=== PATIENT | female | born 1970 | race Caucasian/White ===

== ENCOUNTER 2017-03-13 21:41 | Inpatient (IN) | payer OTHER ==
[2017-03-13 21:59] VITALS: BMI 18.6
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
[2017-03-13] MEDS ORDERED: ACETAMINOPHEN 325 MG TABLET (FP) PO PRN (22:50)
[2017-03-13] MEDS ORDERED: guaiFENesin/D-METHORPHAN HB 10 ML UNIT-DOSE CUPS PO PRN (22:50)
[2017-03-13] MEDS ORDERED: diphenhydrAMINE HCL 50 MG CAPSULE PO PRN (22:50)
[2017-03-13] MEDS ORDERED: diazePAM 5 MG TABLET PO ONE (22:50)
[2017-03-13] MEDS ORDERED: MAGNESIUM HYDROX 2400MG/30ML ORAL SUSPENSION 30 ML CUP PO PRN (22:50)
[2017-03-13] MEDS ORDERED: LOPERAMIDE HCL 2 MG CAPSULE PO PRN (22:50)
[2017-03-13] MEDS ORDERED: IBUPROFEN 400 MG TABLET (FP) PO PRN (22:50)
[2017-03-13] MEDS ORDERED: MAGNESIUM CITRATE 300 ML BOTTLE PO PRN (22:50)
[2017-03-13] MEDS ORDERED: MENTHOL/PHENOL 1 EACH UD MM PRN (22:50)
[2017-03-13] MEDS ORDERED: MAG HYDROX/AL HYDROX/SIMETH 30 ML UNIT-DOSE CUP PO PRN (22:50)
[2017-03-13] MEDS ORDERED: P-EPHED 60MG/TRIPROLIDI 2.5MG TABLET PO PRN (22:50)
[2017-03-14] MEDS: NICOTINE POLACRILEX 2 MG GUM BUC PRN ×5 (01:34→22:41)
[2017-03-14] MEDS: diazePAM 5 MG TABLET PO PRN ×3 (04:46→18:26)
[2017-03-14] MEDS: diazePAM 5 MG TABLET PO SCH ×3 (07:26→22:38)
[2017-03-14] MEDS ORDERED: METHADONE HCL 10 MG TABLET PO ONE (08:39)
[2017-03-14] MEDS ORDERED: METHADONE 40 MG, METHADONE 10 MG, METHADONE 5 MG PO ONE (09:05)
[2017-03-14] MEDS ORDERED: METHADONE HCL 10 MG TABLET ONE (09:29)
[2017-03-14] MEDS ORDERED: METHADONE HCL 5 MG TABLET ONE (09:29)
[2017-03-14] MEDS ORDERED: METHADONE HCL 40 MG DISPERSABLE TABLET ONE (09:29)
--- NOTE | 2017-03-14 09:40 | PN ---
[facility] Progress Note Note: pt was at [facility] yesterday 03/13/17 for an ER visit and received methadone 40mg there. Pt belongs to [facility] and was last medicated there on 03/06/17 however she was being built up and will receive her regular dose of 55mg today then during her stay and pt will go back to her program after detox.
[2017-03-14 10:02] LABS: MCH 31.4 pg (25.7-33.7); MCHC 33.2 g/dl (32.0-36.0); MEAN CELL VOLUME 94.7 fl (80-96); MEAN PLT VOLUME 8.9 fl (7.5-11.1); PLATELET COUNT 230 K/MM3 (134-434); RDW 14.7 % (11.6-15.6); WHITE BLOOD COUNT 6.7 K/mm3 (4.0-10.0)
--- NOTE | 2017-03-14 10:29 | PN ---
S CIWA - CIWA Score Nausea/Vomitin-No Nausea/No Vomiting Muscle Tremors: 4-Moderate,w/Arms Extend Anxiety: 3 Agitation: 4-Moderately Restless Paroxysmal Sweats: 3 Orientation: 0-Oriented Tacttile Disturbances: 0-None Auditory Disturbances: 0-None Visual Disturbances: 0-None Headache: 1-Very Mild CIWA-Ar Total Score: 15 BHS Progress Note (SOAP) Subjective: irritable I need my methadone sweats interrupted sleep agitation body aches Objective: 03/14/17 10:25 Vital Signs Temperature 97.9 F 03/14/17 06:38 Pulse Rate 82 03/14/17 06:38 Respiratory Rate 18 03/14/17 06:38 Blood Pressure 106/72 03/14/17 06:38 O2 Sat by Pulse Oximetry (%) Laboratory Tests 03/14/17 07:00 WBC 6.7 RBC 4.11 Hgb 12.9 Hct 39.0 MCV 94.7 MCH 31.4 MCHC 33.2 RDW 14.7 Plt Count 230 MPV 8.9 aaox3 labs pending ambulating no acute distress Assessment: 03/14/17 10:29 withdrawal sx Plan: continue detox increase fluids methadone ordered labs pending
[2017-03-14 10:42] LABS: ALBUMIN 3.3 g/dl (3.4-5.0); ALK PHOS 56 U/L (45-117); ANION GAP 9 (8-16); BILIRUBIN,TOTAL 0.3 mg/dL (0.2-1.0); CALCIUM 8.5 mg/dL (8.5-10.1); CO2 28 mmol/L (21-32); CREATININE 0.6 mg/dL (0.55-1.02); GLUCOSE,RANDOM 81 mg/dL (74-106); SGOT/AST 15 U/L (15-37); SGPT/ALT 23 U/L (12-78); TOT PROT 6.9 g/dl (6.4-8.2)
[2017-03-14] MEDS: PRENATAL VITAMINS W/ FOLIC ACID TABLET (FP) PO SCH (10:44)
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
--- NOTE | 2017-03-14 20:27 | EKG ---
Test Reason : Blood Pressure : / mmHG Vent. Rate : 087 BPM Atrial Rate : 087 BPM P-R Int : 170 ms QRS Dur : 084 ms QT Int : 376 ms P-R-T Axes : 032 078 064 degrees QTc Int : 452 ms NORMAL SINUS RHYTHM RSR' IN V1-V2 NO PREVIOUS ECGS AVAILABLE Confirmed by ISAIAS WYATT MD ([id number]) on 03/14/2017 8:27:06 PM Referred By: Confirmed By:ISAIAS WYATT MD
[2017-03-14] MEDS: QUEtiapine FUMARATE 50 MG TABLET PO SCH (22:38)
[2017-03-14] MEDS: THIAMINE HCL 100 MG TABLET (FP) PO SCH (22:38)
[2017-03-15] MEDS: diazePAM 5 MG TABLET PO PRN ×4 (01:46→18:07)
[2017-03-15] MEDS: NICOTINE POLACRILEX 2 MG GUM BUC PRN ×3 (01:48→10:53)
[2017-03-15] MEDS: METHADONE HCL 40 MG DISPERSABLE TABLET PO SCH (05:54)
[2017-03-15] MEDS ORDERED: METHADONE 40 MG, METHADONE 10 MG, METHADONE 5 MG PO SCH ×2 (06:00)
[2017-03-15] MEDS ORDERED: METHADONE HCL 40 MG DISPERSABLE TABLET PO SCH (06:00)
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
--- NOTE | 2017-03-15 09:50 | PN ---
S CIWA - CIWA Score Nausea/Vomitin-No Nausea/No Vomiting Muscle Tremors: 4-Moderate,w/Arms Extend Anxiety: 3 Agitation: 3 Paroxysmal Sweats: 3 Orientation: 0-Oriented Tacttile Disturbances: 0-None Auditory Disturbances: 0-None Visual Disturbances: 0-None Headache: 0-None Present CIWA-Ar Total Score: 13 BHS Progress Note (SOAP) Subjective: agitation sweats anxiety i need my gayle removed from my head Objective: 03/15/17 10:01 Vital Signs Temperature 97.7 F 03/15/17 06:47 Pulse Rate 85 03/15/17 06:47 Respiratory Rate 18 03/15/17 06:47 Blood Pressure 99/60 03/15/17 06:47 O2 Sat by Pulse Oximetry (%) Laboratory Tests 03/14/17 03/14/17 03/14/17 07:00 07:00 07:00 WBC 6.7 RBC 4.11 Hgb 12.9 Hct 39.0 MCV 94.7 MCH 31.4 MCHC 33.2 RDW 14.7 Plt Count 230 MPV 8.9 Sodium 140 Potassium 4.2 Chloride 103 Carbon Dioxide 28 Anion Gap 9 BUN 19 H Creatinine 0.6 Creat Clearance w eGFR > 60 Random Glucose 81 Calcium 8.5 Total Bilirubin 0.3 AST 15 ALT 23 Alkaline Phosphatase 56 Total Protein 6.9 Albumin 3.3 L RPR Titer Nonreactive labs pending aaox3 ambulating no acute distress methadone was decreased to 40mg until her detox is complete, pt states she is feeling ok. discussion made with pt that she will be observed and will increase her methadone slowly, pt in agreement. Assessment: 03/15/17 10:11 withdrawal sx Plan: continue detox increase fluids
[2017-03-15] MEDS: PRENATAL VITAMINS W/ FOLIC ACID TABLET (FP) PO SCH (10:49)
[2017-03-15] MEDS: PARoxetine HCL 20 MG TABLET (FP) PO SCH (10:49)
[2017-03-15] MEDS: CYCLOBENZAPRINE HCL 10 MG TABLET (FP) PO PRN ×2 (10:50→22:22)
[2017-03-15] MEDS: IBUPROFEN 600 MG TABLET (FP) PO PRN (10:51)
[2017-03-15] MEDS: diazePAM 5 MG TABLET PO SCH ×2 (10:52→22:21)
[2017-03-15] MEDS: QUEtiapine FUMARATE 50 MG TABLET PO SCH (22:20)
[2017-03-15] MEDS: THIAMINE HCL 100 MG TABLET (FP) PO SCH (22:20)
[2017-03-16] MEDS: diazePAM 5 MG TABLET PO PRN ×3 (01:28→17:29)
[2017-03-16] MEDS: NICOTINE POLACRILEX 2 MG GUM BUC PRN ×7 (01:29→23:02)
[2017-03-16] MEDS: IBUPROFEN 600 MG TABLET (FP) PO PRN ×2 (04:27→19:14)
[2017-03-16] MEDS: METHADONE HCL 40 MG DISPERSABLE TABLET PO SCH (05:40)
[2017-03-16] MEDS: CYCLOBENZAPRINE HCL 10 MG TABLET (FP) PO PRN ×3 (05:41→23:00)
[2017-03-16] MEDS ORDERED: METHADONE HCL 10 MG TABLET PO ONE (08:41)
[2017-03-16] MEDS: PARoxetine HCL 20 MG TABLET (FP) PO SCH (10:39)
[2017-03-16] MEDS: PRENATAL VITAMINS W/ FOLIC ACID TABLET (FP) PO SCH (10:39)
[2017-03-16] MEDS: diazePAM 5 MG TABLET PO SCH ×3 (10:40→23:01)
--- NOTE | 2017-03-16 11:17 | PN ---
[facility] Progress Note (SOAP) Subjective: feeling much better i would like my methadone increased anxiety sweats Objective: 03/16/17 11:17 Vital Signs Temperature 96.3 F L 03/16/17 10:12 Pulse Rate 81 03/16/17 10:12 Respiratory Rate 18 03/16/17 10:12 Blood Pressure 102/64 03/16/17 10:12 O2 Sat by Pulse Oximetry (%) aaox3 ambulating no acute distress Assessment: 03/16/17 11:17 withdrawal sx Plan: continue detox increase fluids methadone maintains will be increased to 55mg in the am d/c tomorrow and pt is to go to her mmtp to re-instate
[2017-03-16 14:27] LABS: URINE APPEARANCE CLEAR; URINE BILIRUBIN NEGATIVE (NEGATIVE); URINE BLOOD NEGATIVE (NEGATIVE); URINE COLOR LT. RED; URINE GLUCOSE (UA) NEGATIVE (NEGATIVE); URINE KETONE TRACE (NEGATIVE); URINE NITRITE NEGATIVE (NEGATIVE); URINE PROTEIN NEGATIVE (NEGATIVE); URINE UROBILINOGEN 0.2 mg/dL (0.2-1.0)
[2017-03-16 18:42] LABS: URINE LEUK ESTERASE 3+ (NEGATIVE)
[2017-03-16 20:21] LABS: URINE RBC 0-2 /hpf (0-3)
[2017-03-16 20:22] LABS: URINE BACTERIA MODERATE /hpf (NEGATIVE)
[2017-03-16] MEDS: THIAMINE HCL 100 MG TABLET (FP) PO SCH (22:59)
[2017-03-16] MEDS: QUEtiapine FUMARATE 50 MG TABLET PO SCH (22:59)
[2017-03-17] MEDS: NICOTINE POLACRILEX 2 MG GUM BUC PRN ×3 (02:25→09:49)
[2017-03-17] MEDS ORDERED: METHADONE HCL 40 MG DISPERSABLE TABLET ONE (04:59)
[2017-03-17] MEDS ORDERED: METHADONE HCL 10 MG TABLET ONE (04:59)
[2017-03-17] MEDS ORDERED: METHADONE HCL 5 MG TABLET ONE (05:00)
[2017-03-17] MEDS: CYCLOBENZAPRINE HCL 10 MG TABLET (FP) PO PRN (05:55)
[2017-03-17] MEDS ORDERED: METHADONE HCL 40 MG DISPERSABLE TABLET PO SCH (06:00)
[2017-03-17] MEDS ORDERED: METHADONE 40 MG, METHADONE 10 MG, METHADONE 5 MG PO SCH (06:00)
[2017-03-17 06:45] VITALS: BP 104/62; PULSE 90; TEMP 97.9
--- NOTE | 2017-03-17 08:36 | DS ---
[facility] Detox Discharge Summary Admission Date: 03/13/17 Discharge Date: 03/17/17 - History Present History: Alcohol Dependence, Sedative Dependence, MMTP - Physical Exam Results Vital Signs: Vital Signs Temperature 97.9 F 03/17/17 06:00 Pulse Rate 90 03/17/17 06:00 Respiratory Rate 18 03/17/17 06:00 Blood Pressure 104/62 03/17/17 06:00 O2 Sat by Pulse Oximetry (%) - Treatment Hospital Course: Detox Protocol Followed, Detoxed Safely, Responded well, Discharged Condition Good - Medication Discharge Medications: Ambulatory Orders Clonazepam [Klonopin -] 3 mg PO DAILY 03/13/17 Paroxetine HCl [Paxil -] 20 mg PO DAILY 03/13/17 Quetiapine Fumarate [Seroquel -] 50 mg PO HS 03/13/17 Paroxetine HCl [Paxil] 20 mg PO HS #30 tablet 03/15/17 Quetiapine Fumarate [Seroquel -] 50 mg PO HS #30 tablet 03/15/17 - Diagnosis (1) Opioid dependence on agonist therapy Current Visit: Yes Status: Chronic (2) Alcohol dependence with uncomplicated withdrawal Current Visit: Yes Status: Chronic (3) Nicotine dependence Current Visit: Yes Status: Chronic Qualifiers: Nicotine product type: cigarettes Substance use status: uncomplicated Qualified Code(s): F17.210 - Nicotine dependence, cigarettes, uncomplicated; F17.210 - Nicotine dependence, cigarettes, uncomplicated (4) Sedative, hypnotic or anxiolytic dependence with withdrawal, uncomplicated Current Visit: Yes Status: Chronic (5) UTI (urinary tract infection) Current Visit: Yes Status: Chronic Qualifiers: Urinary tract infection type: acute cystitis (6) Seizure disorder Current Visit: No Status: Chronic - AMA Did Patient Leave Against Medical Advice: No
[2017-03-17] MEDS: PRENATAL VITAMINS W/ FOLIC ACID TABLET (FP) PO SCH (09:02)
[2017-03-17] MEDS: PARoxetine HCL 20 MG TABLET (FP) PO SCH (09:02)
[2017-03-17] MEDS ORDERED: diazePAM 5 MG TABLET PO SCH (10:00)
== END 2017-03-17 09:50 | disposition home or self-care (01) | DRG 897 ==
LOC: YASAS 21:41 → Y6N 22:52
PROVIDERS: ADMIT Internal Medicine; ATTEND Internal Medicine
PROC: HZ2ZZZZ Detoxification Services for Substance Abuse Treatment (ICD-10-PCS; principal; 2017-03-13)
PROC: 8E09XY8 Suture Removal from Head and Neck Region (ICD-10-PCS; 2017-03-15)
DX: F10.230 Alcohol dependence with withdrawal, uncomplicated (principal); F11.20 Opioid dependence, uncomplicated; N30.00 Acute cystitis without hematuria; F13.230 Sedative, hypnotic or anxiolytic dependence with withdrawal, uncomplicated; F17.210 Nicotine dependence, cigarettes, uncomplicated; F32.9 Major depressive disorder, single episode, unspecified; F19.24 Other psychoactive substance dependence with psychoactive substance-induced mood disorder; D50.9 Iron deficiency anemia, unspecified; J45.909 Unspecified asthma, uncomplicated; G47.00 Insomnia, unspecified; Z86.69 Personal history of other diseases of the nervous system and sense organs
CPT/HCPCS: 36415; 80053; 81003; 81015; 85027; 86593; 93005; 93010

== ENCOUNTER 2017-05-21 12:46 | Inpatient (IN) | payer OTHER ==
[2017-05-21 13:11] VITALS: BMI 18.3
--- NOTE | 2017-05-21 14:37 | HP ---
CIWA Score - CIWA Score Nausea/Vomitin Muscle Tremors: 4-Moderate,w/Arms Extend Anxiety: 4-Mod. Anxious/Guarded Agitation: 4-Moderately Restless Paroxysmal Sweats: 3 Orientation: 0-Oriented Tacttile Disturbances: 0-None Auditory Disturbances: 0-None Visual Disturbances: 0-None Headache: 2-Mild CIWA-Ar Total Score: 20 Admission ROS BHS - HPI Chief Complaint: Alcohol withdrawal symptoms Allergies/Adverse Reactions: Allergies Allergy/AdvReac Type Severity Reaction Status Date / Time No Known Allergies Allergy Verified 05/21/17 15:14 History of Present Illness: 46 years old female with a long history of alcohol dependence is admitted to detox. Patient has been in previous detox, last admitted on 03/13/2017 at [facility]. She has medical history of seizures, asthma, anemia and depression. Denies suicidal ideation at this time. Patient is on methadone 45mg at [facility]. She states that she last took her methadone medication 4 days ago. Methadone dose is yet to be confirmed by the nurse. Exam Limitations: No Limitations - Ebola screening Have you traveled outside of the country in the last 21 days: No Have you had contact with anyone from an Ebola affected area: No Have you been sick,other than usual withdrawal symptoms: No Do you have a fever: No - Review of Systems Constitutional: Chills, Loss of Appetite, Night Sweats, Changes in sleep EENT: reports: No Symptoms Reported, Nose Congestion, Sinus Pressure Respiratory: reports: No Symptoms reported, Productive cough (yellow phlegm) Cardiac: reports: Palpitations (just smoked 4 cigarettes) GI: reports: Diarrhea, Nausea, Poor Appetite, Poor Fluid Intake, Vomiting, Indigestion, Abdominal cramping : reports: Burning Musculoskeletal: reports: Muscle Pain, Muscle Weakness Integumentary: reports: Flushing Neuro: reports: Tingling, Tremors Endocrine: reports: No Symptoms Reported Hematology: reports: Anemia Psychiatric: reports: Mood/Affect Appropiate, Agitated, Anxious, Depressed Other Systems: Reviewed and Negative Patient History - Patient Medical History Hx Anemia: Yes Hx Asthma: Yes Hx Chronic Obstructive Pulmonary Disease (COPD): No Hx Cancer: No Hx Cardiac Disorders: No Hx Congestive Heart Failure: No Hx Hypertension: No Hx Hypercholesterolemia: No HX Cerebrovascular Accident: No Hx Seizures: Yes () Hx Diabetes: No Hx Gastrointestinal Disorders: No Hx Liver Disease: No Hx Genitourinary Disorders: Yes (UTI) Hx Sexually Transmitted Disorders: No Hx Renal Disease (ESRD): No Hx Thyroid Disease: No Hx Human Immunodeficiency Virus (HIV): No (Negative 2017) Hx Hepatitis C: No Hx Depression: Yes Hx Suicide Attempt: No Hx Bipolar Disorder: No Hx Schizophrenia: No - Patient Surgical History Past Surgical History: No Hx Neurologic Surgery: No Hx Cataract Extraction: No Hx Cardiac Surgery: No Hx Lung Surgery: No Hx Breast Surgery: No Hx Breast Biopsy: No Hx Abdominal Surgery: No Hx Appendectomy: No Hx Cholecystectomy: No Hx Genitourinary Surgery: No Hx Section: No Hx Orthopedic Surgery: No Anesthesia Reaction: No - PPD History Date: 03/16/17 PPD to be Administered?: No - Reproductive History Patient is a Female of Child Bearing Age (11 -55 yrs old): Yes Last Menstrual Period: 04/30/17 Patient : No - Smoking Cessation Smoking history: Current every day smoker Have you smoked in the past 12 months: Yes Aproximately how many cigarettes per day: 10 Hx Chewing Tobacco Use: No Initiated information on smoking cessation: Yes 'Breaking Loose' booklet given: 05/21/17 - Substance & Tx. History Hx Alcohol Use: Yes Substance Use Type: Alcohol, Heroin Hx Substance Use Treatment: Yes ([facility] 03/13/2017) - Substances Abused Alcohol Route: Oral Frequency: Daily Amount used: Beer 3 x 40 oz, Age of first use: 15 Date of Last Use: 05/20/17 Heroin Route: Injection Frequency: 1-2 times per week Amount used: $10 Age of first use: 45 Date of Last Use: 05/13/17 Family Disease History - Family Disease History Family Disease History: CA: Mother (Breast Ca, ) Admission Physical Exam S - Vital Signs Vital Signs: Vital Signs - 24 hr 05/21/17 13:09 Temperature 96.9 F L Pulse Rate 104 H Respiratory 20 Rate Blood Pressure 111/91 - Physical General Appearance: Yes: Moderate Distress, Irritable, Sweating, Anxious HEENTM: Yes: EOMI, Normal Voice, STVEE Respiratory: Yes: Lungs Clear, Normal Breath Sounds, No Respiratory Distress Neck: Yes: Supple Breast: Yes: Breast Exam Deferred Cardiology: Yes: Tachycardia Abdominal: Yes: Normal Bowel Sounds, Soft Genitourinary: Yes: Within Normal Limits Back: Yes: Within Normal Limits Musculoskeletal: Yes: Back pain, Muscle Pain, Muscle weakness, Other (bilateral leg pain) Extremities: Yes: Within Normal Limits, Tremors Neurological: Yes: Alert, Normal Mood/Affect, Normal Response Integumentary: Yes: Dry Lymphatic: Yes: Within Normal Limits - Diagnostic (1) Alcohol dependence with uncomplicated withdrawal Current Visit: Yes Status: Chronic (2) Anemia Current Visit: Yes Status: Chronic Qualifiers: Anemia type: iron deficiency Iron deficiency anemia type: unspecified iron deficiency Qualified Code(s): D50.9 - Iron deficiency anemia, unspecified (3) Asthma Current Visit: Yes Status: Chronic (4) Depressive disorder Current Visit: Yes Status: Chronic (5) Nicotine dependence Current Visit: Yes Status: Chronic Qualifiers: Nicotine product type: cigarettes Substance use status: uncomplicated Qualified Code(s): F17.210 - Nicotine dependence, cigarettes, uncomplicated (6) Opioid dependence on agonist therapy Current Visit: Yes Status: Chronic (7) Seizure disorder Current Visit: Yes Status: Chronic Cleared for Admission [facility] - Detox or Rehab [facility] Level of Care: Medically Managed Detox Regimen/Protocol: Valium [facility] Breath Alcohol Content Breath Alcohol Content: 0.134 Urine Pregancy Test - Result Urine Test Results: Negative- NO Line Present Urine Drug Screen - Results Drug Screen Negative: No Urine Drug Screen Results: BZO-Benzodiazepines, MTD-Methadone
[2017-05-21] MEDS ORDERED: MAG HYDROX/AL HYDROX/SIMETH 30 ML UNIT-DOSE CUP PO PRN (14:50)
[2017-05-21] MEDS ORDERED: MAGNESIUM CITRATE 300 ML BOTTLE PO PRN (14:50)
[2017-05-21] MEDS ORDERED: MAGNESIUM HYDROX 2400MG/30ML ORAL SUSPENSION 30 ML CUP PO PRN (14:50)
[2017-05-21] MEDS ORDERED: guaiFENesin/D-METHORPHAN HB 10 ML UNIT-DOSE CUPS PO PRN (14:50)
[2017-05-21] MEDS ORDERED: MENTHOL/PHENOL 1 EACH UD MM PRN (14:50)
[2017-05-21] MEDS ORDERED: diazePAM 5 MG TABLET PO ONE (14:50)
[2017-05-21] MEDS ORDERED: LOPERAMIDE HCL 2 MG CAPSULE PO PRN (14:50)
[2017-05-21] MEDS ORDERED: ACETAMINOPHEN 325 MG TABLET (FP) PO PRN (14:50)
[2017-05-21] MEDS ORDERED: P-EPHED 60MG/TRIPROLIDI 2.5MG TABLET PO PRN (14:50)
[2017-05-21] MEDS: NICOTINE POLACRILEX 2 MG GUM BC PRN (17:17)
[2017-05-21 18:43] LABS: URINE APPEARANCE CLOUDY; URINE BILIRUBIN NEGATIVE (NEGATIVE); URINE BLOOD 2+ (NEGATIVE); URINE COLOR YELLOW; URINE GLUCOSE (UA) NEGATIVE (NEGATIVE); URINE KETONE NEGATIVE (NEGATIVE); URINE NITRITE NEGATIVE (NEGATIVE); URINE PROTEIN NEGATIVE (NEGATIVE); URINE UROBILINOGEN NEGATIVE mg/dL (0.2-1.0)
[2017-05-21 19:05] LABS: URINE LEUK ESTERASE 3+ (NEGATIVE)
[2017-05-21 19:08] LABS: EPI CELLS FEW /HPF (FEW); URINE BACTERIA FEW /hpf (NONE SEEN); URINE MUCUS FEW
[2017-05-21] MEDS: diazePAM 5 MG TABLET PO PRN (19:59)
[2017-05-21] MEDS: THIAMINE HCL 100 MG TABLET (FP) PO SCH (22:07)
[2017-05-21] MEDS: diazePAM 5 MG TABLET PO SCH (22:07)
[2017-05-21] MEDS: IBUPROFEN 400 MG TABLET (FP) PO PRN (22:07)
[2017-05-22] MEDS: diazePAM 5 MG TABLET PO PRN ×4 (01:09→17:21)
[2017-05-22] MEDS: diazePAM 5 MG TABLET PO SCH ×3 (05:02→22:15)
[2017-05-22] MEDS: NICOTINE POLACRILEX 2 MG GUM BC PRN ×3 (09:39→22:17)
[2017-05-22] MEDS: NICOTINE 14 MG/24 HOURS TOPICAL PATCH TD SCH (10:27)
[2017-05-22] MEDS: PRENATAL VITAMINS W/ FOLIC ACID TABLET (FP) PO SCH (10:28)
[2017-05-22] MEDS ORDERED: cloNIDine HCL 0.1 MG TABLET PO ONE (10:53)
[2017-05-22] MEDS: hydrOXYzine PAMOATE 50 MG CAPSULE (FP) PO PRN ×2 (10:59→22:14)
[2017-05-22] MEDS: CYCLOBENZAPRINE HCL 10 MG TABLET (FP) PO PRN (11:00)
[2017-05-22 12:04] LABS: HEMATOCRIT 42.4 % (32.4-45.2); HEMOGLOBIN 13.7 GM/dL (10.7-15.3); MCH 30.6 pg (25.7-33.7); MCHC 32.3 g/dl (32.0-36.0); MEAN CELL VOLUME 94.8 fl (80-96); MEAN PLT VOLUME 9.7 fl (7.5-11.1); RBC 4.48 M/mm3 (3.60-5.2); RDW 13.8 % (11.6-15.6); WHITE BLOOD COUNT 8.4 K/mm3 (4.0-10.0)
[2017-05-22 12:22] LABS: ALBUMIN 3.2 g/dl (3.4-5.0); ALK PHOS 65 U/L (45-117); ANION GAP 8 (8-16); BILIRUBIN,TOTAL 0.8 mg/dL (0.2-1.0); BLOOD UREA NITROGEN 10 mg/dL (7-18); CALCIUM 8.3 mg/dL (8.5-10.1); CHLORIDE 104 mmol/L (98-107); CO2 27 mmol/L (21-32); CREATININE 0.5 mg/dL (0.55-1.02); GLUCOSE,RANDOM 93 mg/dL (74-106); POTASSIUM 3.8 mmol/L (3.5-5.1); SGOT/AST 30 U/L (15-37); SGPT/ALT 31 U/L (12-78); SODIUM 139 mmol/L (136-145); TOT PROT 7.1 g/dl (6.4-8.2)
--- NOTE | 2017-05-22 12:25 | PN ---
S CIWA - CIWA Score Nausea/Vomitin Muscle Tremors: 3 Anxiety: 3 Agitation: 3 Paroxysmal Sweats: 2 Orientation: 0-Oriented Tacttile Disturbances: 1-Very Mild Itch/Numbness Auditory Disturbances: 1-Very Mild Visual Disturbances: 0-None Headache: 2-Mild CIWA-Ar Total Score: 18 BHS Progress Note (SOAP) Subjective: ALERT,IRRITABLE,ANXIOUS,INTERRUPTED SLEEP,TREMOR,PAIN IN THE BODY Objective: 05/22/17 12:23 Vital Signs Temperature 97.9 F 05/22/17 10:00 Pulse Rate 77 05/22/17 10:00 Respiratory Rate 18 05/22/17 10:00 Blood Pressure 127/98 05/22/17 10:00 O2 Sat by Pulse Oximetry (%) 05/22/17 12:23 EKG NSR NO HEST PAIN,NO SOB,NO DIZZINESS Laboratory Last Values Urine Color Yellow 05/21/17 15:58 Urine Appearance Cloudy 05/21/17 15:58 Urine pH 6.0 (5.0-8.0) 05/21/17 15:58 Ur Specific [place] 1.006 (1.001-1.035) 05/21/17 15:58 Urine Protein Negative (NEGATIVE) 05/21/17 15:58 Urine Glucose (UA) Negative (NEGATIVE) 05/21/17 15:58 Urine Ketones Negative (NEGATIVE) 05/21/17 15:58 Urine Blood 2+ (NEGATIVE) H 05/21/17 15:58 Urine Nitrite Negative (NEGATIVE) 05/21/17 15:58 Urine Bilirubin Negative (NEGATIVE) 05/21/17 15:58 Urine Urobilinogen Negative mg/dL (0.2-1.0) 05/21/17 15:58 Ur Leukocyte Esterase 2+ (NEGATIVE) H 05/21/17 15:58 Urine WBC (Auto) 14 /hpf (3-5) 05/21/17 15:58 Urine RBC (Auto) 3 /hpf (0-3) 05/21/17 15:58 Ur Epithelial Cells Few /HPF (FEW) 05/21/17 15:58 Urine Bacteria Few /hpf (NONE SEEN) 05/21/17 15:58 Urine Mucus Few 05/21/17 15:58 LABS PENDING Assessment: 05/22/17 12:24 WITHDRAWAL SYMPTOM Plan: CONTINUE DETOX,ENCOURAGE ORAL FLUID,REPEAT UA
--- NOTE | 2017-05-22 14:17 | EKG ---
Test Reason : Blood Pressure : / mmHG Vent. Rate : 091 BPM Atrial Rate : 091 BPM P-R Int : 194 ms QRS Dur : 084 ms QT Int : 374 ms P-R-T Axes : 042 079 048 degrees QTc Int : 460 ms NORMAL SINUS RHYTHM NONSPECIFIC ST ABNORMALITY ABNORMAL ECG WHEN COMPARED WITH ECG OF 13-MAR-2017 23:12, ST NOW DEPRESSED IN INFERIOR LEADS CLINICAL CORRELATION IS RECOMMENDED Confirmed by TORRIE MORAN, DAVID ([id number]) on 05/22/2017 2:17:23 PM Referred By: Harry Menendez Confirmed By:DAVID BROWNLEE MD
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
[2017-05-22] MEDS ORDERED: CYCLOBENZAPRINE HCL 10 MG TABLET (FP) PO ONE (19:53)
[2017-05-22] MEDS: QUEtiapine FUMARATE 50 MG TABLET PO SCH (22:14)
[2017-05-22] MEDS: cloNIDine HCL 0.1 MG TABLET PO SCH (22:14)
[2017-05-22] MEDS: THIAMINE HCL 100 MG TABLET (FP) PO SCH (22:14)
[2017-05-23] MEDS: diazePAM 5 MG TABLET PO PRN ×4 (02:14→18:30)
[2017-05-23] MEDS: NICOTINE POLACRILEX 2 MG GUM BC PRN ×4 (05:56→22:05)
--- NOTE | 2017-05-23 08:55 | PN ---
[facility] Progress Note Note: pt was terminated from her mmtp program START her last methadone was on 2016. pt states she has been buying methadone and heroin from the streets and never went back to her program. pt feels sick now. pt will be on a methadone detox taper, pt in agreement. pt also states she will find another mmtp program to join.
[2017-05-23] MEDS ORDERED: METHADONE HCL 10 MG TABLET (FOR DETOX USE ONLY) PO ONE (10:00)
[2017-05-23] MEDS: PRENATAL VITAMINS W/ FOLIC ACID TABLET (FP) PO SCH (10:18)
[2017-05-23] MEDS: diazePAM 5 MG TABLET PO SCH ×2 (10:18→22:03)
[2017-05-23] MEDS: cloNIDine HCL 0.1 MG TABLET PO SCH ×2 (10:18→22:03)
[2017-05-23] MEDS: NICOTINE 14 MG/24 HOURS TOPICAL PATCH TD SCH (10:18)
[2017-05-23] MEDS: IBUPROFEN 400 MG TABLET (FP) PO PRN ×2 (10:21→22:02)
[2017-05-23] MEDS: hydrOXYzine PAMOATE 50 MG CAPSULE (FP) PO PRN ×2 (16:39→22:03)
[2017-05-23] MEDS: CYCLOBENZAPRINE HCL 10 MG TABLET (FP) PO PRN (18:30)
[2017-05-23] MEDS: QUEtiapine FUMARATE 50 MG TABLET PO SCH (22:02)
[2017-05-23] MEDS: THIAMINE HCL 100 MG TABLET (FP) PO SCH (22:02)
[2017-05-24] MEDS: diazePAM 5 MG TABLET PO PRN ×2 (04:43→13:21)
[2017-05-24] MEDS: NICOTINE POLACRILEX 2 MG GUM BC PRN ×5 (04:45→18:04)
[2017-05-24] MEDS: CYCLOBENZAPRINE HCL 10 MG TABLET (FP) PO PRN ×3 (05:53→22:10)
[2017-05-24] MEDS ORDERED: METHADONE HCL 5 MG TABLET (FOR DETOX USE ONLY) PO ONE (10:00)
[2017-05-24] MEDS: diazePAM 5 MG TABLET PO SCH ×2 (10:47→22:11)
[2017-05-24] MEDS: cloNIDine HCL 0.1 MG TABLET PO SCH ×2 (10:47→22:10)
[2017-05-24] MEDS: PRENATAL VITAMINS W/ FOLIC ACID TABLET (FP) PO SCH (10:47)
[2017-05-24] MEDS: NICOTINE 14 MG/24 HOURS TOPICAL PATCH TD SCH (10:48)
--- NOTE | 2017-05-24 11:10 | PN ---
[facility] CIWA - CIWA Score Nausea/Vomitin-No Nausea/No Vomiting Muscle Tremors: 4-Moderate,w/Arms Extend Anxiety: 3 Agitation: 3 Paroxysmal Sweats: 3 Orientation: 0-Oriented Tacttile Disturbances: 0-None Auditory Disturbances: 0-None Visual Disturbances: 0-None Headache: 0-None Present CIWA-Ar Total Score: 13 BHS COWS - Scale Resting Pulse: 0= OK 80 or Below Sweatin= Chills/Flushing Restless Observation: 1= Difficult to Sit Still Pupil Size: 0= Normal to Room Light Bone or Joint Aches: 2= Severe Diffuse Aches Runny Nose/ Eye Tearin= Runny Nose/Eyes GI Upset > 30mins: 1= Stomach Cramp Tremor Observation of Outstretched Hands: 2= Slight Tremor Visible Yawning Observation: 2= >3x During Session Anxiety or Irritability: 2=Irritable/Anxious Goose Flesh Skin: 3=Piloerection COWS Score: 16 S Progress Note (SOAP) Subjective: sweats shakes chills body aches interrupted sleep nasal congestion Objective: 05/23/17 11:09 Vital Signs - 24 hr 05/23/17 05/23/17 05/23/17 15:03 18:00 23:46 Temperature 97.5 F L 97.7 F 98.1 F Pulse Rate 100 H 96 H 101 H Respiratory 16 16 16 Rate Blood Pressure 132/86 117/70 114/78 05/24/17 05/24/17 05/24/17 00:30 03:30 06:54 Temperature 97.5 F L Pulse Rate 79 Respiratory 18 18 18 Rate Blood Pressure 95/53 05/24/17 10:46 Temperature 97.7 F Pulse Rate 95 H Respiratory 18 Rate Blood Pressure 115/75 Laboratory Tests 05/21/17 05/22/17 05/22/17 15:58 07:50 07:50 WBC 8.4 RBC 4.48 Hgb 13.7 Hct 42.4 MCV 94.8 MCH 30.6 MCHC 32.3 RDW 13.8 Plt Count TNP MPV 9.7 Platelet Comment Slt plt clumping Sodium 139 Potassium 3.8 Chloride 104 Carbon Dioxide 27 Anion Gap 8 BUN 10 D Creatinine 0.5 L Creat Clearance w eGFR > 60 Random Glucose 93 Calcium 8.3 L Total Bilirubin 0.8 D AST 30 D ALT 31 D Alkaline Phosphatase 65 Total Protein 7.1 Albumin 3.2 L Urine Color Yellow Urine Appearance Cloudy Urine pH 6.0 Ur Specific [place] 1.006 Urine Protein Negative Urine Glucose (UA) Negative Urine Ketones Negative Urine Blood 2+ H Urine Nitrite Negative Urine Bilirubin Negative Urine Urobilinogen Negative Ur Leukocyte Esterase 2+ H Urine WBC (Auto) 14 Urine RBC (Auto) 3 Ur Epithelial Cells Few Urine Bacteria Few Urine Mucus Few RPR Titer HIV 1&2 Antibody Screen HIV P24 Antigen 05/22/17 05/22/17 07:50 07:50 WBC RBC Hgb Hct MCV MCH MCHC RDW Plt Count MPV Platelet Comment Sodium Potassium Chloride Carbon Dioxide Anion Gap BUN Creatinine Creat Clearance w eGFR Random Glucose Calcium Total Bilirubin AST ALT Alkaline Phosphatase Total Protein Albumin Urine Color Urine Appearance Urine pH Ur Specific [place] Urine Protein Urine Glucose (UA) Urine Ketones Urine Blood Urine Nitrite Urine Bilirubin Urine Urobilinogen Ur Leukocyte Esterase Urine WBC (Auto) Urine RBC (Auto) Ur Epithelial Cells Urine Bacteria Urine Mucus RPR Titer Nonreactive HIV 1&2 Antibody Screen Negative HIV P24 Antigen Negative aaox3 ambulating no acute distress Assessment: 05/23/17 11:18 withdrawal sx Plan: continue detox increase fluids placed pt on a methadone detox
--- NOTE | 2017-05-24 11:21 | PN ---
[facility] Progress Note (SOAP) Subjective: agitation anxiety sweats body aches Objective: 05/24/17 11:22 Vital Signs Temperature 97.7 F 05/24/17 10:46 Pulse Rate 95 H 05/24/17 10:46 Respiratory Rate 18 05/24/17 10:46 Blood Pressure 115/75 05/24/17 10:46 O2 Sat by Pulse Oximetry (%) aaox3 ambulating no acute distress Assessment: 05/24/17 11:23 withdrawal sx Plan: continue detox increase fluids
[2017-05-24] MEDS: hydrOXYzine PAMOATE 50 MG CAPSULE (FP) PO PRN ×2 (11:50→17:03)
[2017-05-24 18:47] LABS: URINE APPEARANCE CLOUDY; URINE BILIRUBIN NEGATIVE (NEGATIVE); URINE BLOOD 3+ (NEGATIVE); URINE COLOR YELLOW; URINE GLUCOSE (UA) NEGATIVE (NEGATIVE); URINE KETONE NEGATIVE (NEGATIVE); URINE NITRITE NEGATIVE (NEGATIVE); URINE PROTEIN NEGATIVE (NEGATIVE); URINE UROBILINOGEN NEGATIVE mg/dL (0.2-1.0)
[2017-05-24 19:07] LABS: URINE LEUK ESTERASE 1+ (NEGATIVE)
--- NOTE | 2017-05-24 19:31 | PN ---
[facility] Progress Note Note: RECEIVED NURSE CALL THAT THE PATIENT WANTS TO SEE A PSYCHIATRIST
[2017-05-24 20:32] LABS: EPI CELLS RARE /HPF (FEW); URINE BACTERIA RARE /hpf (NONE SEEN); URINE MUCUS RARE
--- NOTE | 2017-05-24 21:23 | PN ---
Psychiatric Progress Note Vital Signs: Vital Signs Period Temp Pulse Resp BP Sys/Perkins Pulse Ox Last 24 Hr 96.6 F-98.1 F 79-101 16-20 95-124/53-78 Date of Session: 05/24/17 Chief Complaint:: "I'm not sleeping at all and the seroquel is not working." HPI: Pt. admitted to for alcohol and marijuana dependence. ROS: Unremarkable. Current Medications: Active Medications Generic Name Dose Route Start Last Admin Trade Name Freq PRN Reason Stop Dose Admin Acetaminophen 650 mg 05/21/17 14:50 Tylenol - PO Q4H PRN FEVER OR PAIN Al Hydroxide/Mg Hydroxide 30 ml 05/21/17 14:50 Mylanta Oral Suspension - PO Q6H PRN DYSPEPSIA Bupropion HCl 150 mg 05/23/17 10:00 05/24/17 10:47 Wellbutrin Xl - PO 150 mg DAILY IAIN Administration Clonidine 0.1 mg 05/22/17 22:00 05/24/17 10:47 Catapres - PO 0.1 mg BID IAIN Administration Cyclobenzaprine HCl 10 mg 05/22/17 10:36 05/24/17 15:25 Flexeril - PO 10 mg TID PRN Administration MUSCLE SPASMS Diazepam 5 mg 05/23/17 10:00 05/24/17 10:47 Valium - PO 05/24/17 22:01 5 mg BID IAIN Administration Diazepam 5 mg 05/25/17 10:00 Valium - PO 05/25/17 10:01 DAILY IAIN Eucalyptus/Menthol/Phenol/Sorbitol 1 each 05/21/17 14:50 Cepastat Lozenge - MM Q4H PRN SORE THROAT Guaifenesin 10 ml 05/21/17 14:50 Robitussin Dm - PO Q6H PRN COUGH Hydroxyzine Pamoate 50 mg 05/22/17 10:36 05/24/17 17:03 Vistaril - PO 50 mg Q4H PRN Administration ANXIETY Ibuprofen 400 mg 05/21/17 14:50 05/23/17 22:02 Motrin - PO 400 mg Q6H PRN Administration SEVERE PAIN Loperamide HCl 4 mg 05/21/17 14:50 05/22/17 19:31 Imodium - PO 4 mg Q6H PRN Administration DIARRHEA Magnesium Citrate 300 ml 12/31/17 14:50 Citroma - PO Q48H PRN CONSTIPATION Magnesium Hydroxide 30 ml 05/21/17 14:50 05/23/17 05:55 Milk Of Magnesia - PO 30 ml DAILY PRN Administration CONSTIPATION Methadone HCl 5 mg 05/26/17 06:00 Dolophine - PO 05/26/17 06:01 ONCE@0600 ONE Methadone HCl 10 mg 05/25/17 10:00 Dolophine - PO 05/25/17 10:01 ONCE ONE Nicotine 14 mg 05/22/17 10:00 05/24/17 10:48 Nicoderm Patch - TD Not Given DAILY IAIN Nicotine Polacrilex 2 mg 05/21/17 14:50 05/24/17 18:04 Nicorette Gum - BC 2 mg Q2H PRN Administration NICOTINE REPLACEMENT RX Multivit/Folic Acid/Iron 1 tab 05/22/17 10:00 05/24/17 10:47 Vitamins (Sjr) - PO 1 tab DAILY IAIN Administration Pseudoephedrine/Triprolidine 1 combo 05/21/17 14:50 Actifed - PO TID PRN NASAL CONGESTION Thiamine HCl 100 mg 05/21/17 22:00 05/23/17 22:02 Vitamin B1 - PO 100 mg HS IAIN Administration Zolpidem Tartrate 10 mg 05/24/17 22:00 Ambien - PO HS PRN INSOMNIA YES Medication(s) Change(s): Seroquel 50mg qhs discontinued and ambien 10mg qhs prn added. Current Side Effect: No Lab tests ordered: No Lab tests reviewed: Yes Provider note:: Sole Stapler Welt approached patient in reference to psychiatric reconsultation. Pt. c/o insomnia. States the seroquel 50mg is helping her insomnia. Pt. requesting seroquel to be discontinued and ambien to be added. Pt. reports favorable effect from previously taking ambien. Psychoeducation and sleep hygiene provided. Detoxification in progress. Benefits and side effects ( sleep walking) discussed. Verbal consent given. Will continue to monitor patient. Total face to face time:: 25 Mental Status Exam - Mental Status Exam Alert and Oriented to: Time, Place, Person Cognitive Function: Good Patient Appearance: Well Groomed Mood: Hopeful Affect: Mood Congruent Patient Behavior: Appropriate, Cooperative Speech Pattern: Appropriate Voice Loudness: Normal Thought Process: Goal Oriented Thought Disorder: Not Present Hallucinations: Denies Suicidal Ideation: Denies Homicidal Ideation: Denies Insight/Judgement: Poor Sleep: Poorly Appetite: Fair Muscle strength/Tone: Normal Gait/Station: Normal Psychiatric Treatment Plan - Problem List (1) Alcohol dependence with uncomplicated withdrawal Current Visit: Yes (2) Opioid dependence on agonist therapy Current Visit: Yes (3) Insomnia Current Visit: Yes (4) Substance induced mood disorder Current Visit: Yes (5) Sedative, hypnotic or anxiolytic dependence with withdrawal, uncomplicated Current Visit: Yes
[2017-05-24] MEDS: ZOLPIDEM TARTRATE 5 MG TABLET PO PRN (22:10)
[2017-05-24] MEDS: THIAMINE HCL 100 MG TABLET (FP) PO SCH (22:11)
[2017-05-25] MEDS: hydrOXYzine PAMOATE 50 MG CAPSULE (FP) PO PRN ×3 (00:30→20:40)
[2017-05-25] MEDS: NICOTINE POLACRILEX 2 MG GUM BC PRN ×4 (00:31→22:24)
[2017-05-25] MEDS: IBUPROFEN 400 MG TABLET (FP) PO PRN ×2 (01:41→22:22)
[2017-05-25] MEDS: CYCLOBENZAPRINE HCL 10 MG TABLET (FP) PO PRN ×2 (09:10→20:40)
[2017-05-25] MEDS ORDERED: METHADONE HCL 10 MG TABLET (FOR DETOX USE ONLY) PO ONE (10:00)
[2017-05-25] MEDS ORDERED: diazePAM 5 MG TABLET PO SCH (10:00)
[2017-05-25] MEDS: NICOTINE 14 MG/24 HOURS TOPICAL PATCH TD SCH (10:07)
[2017-05-25] MEDS: PRENATAL VITAMINS W/ FOLIC ACID TABLET (FP) PO SCH (10:07)
[2017-05-25] MEDS: cloNIDine HCL 0.1 MG TABLET PO SCH ×2 (10:07→22:24)
--- NOTE | 2017-05-25 10:43 | PN ---
[facility] Progress Note (SOAP) Subjective: body aches muscle cramping sweats anxiety Objective: 05/25/17 10:41 Vital Signs Temperature 97.5 F L 05/25/17 10:00 Pulse Rate 88 05/25/17 10:00 Respiratory Rate 18 05/25/17 10:00 Blood Pressure 128/71 05/25/17 10:00 O2 Sat by Pulse Oximetry (%) aaox3 ambulating no acute distress Assessment: 05/25/17 10:41 withdrawal sx Plan: continue detox increase fluids d/c in am
[2017-05-25] MEDS: THIAMINE HCL 100 MG TABLET (FP) PO SCH (22:21)
[2017-05-25] MEDS: ZOLPIDEM TARTRATE 5 MG TABLET PO PRN (22:22)
[2017-05-26] MEDS: NICOTINE POLACRILEX 2 MG GUM BC PRN (05:44)
[2017-05-26] MEDS: CYCLOBENZAPRINE HCL 10 MG TABLET (FP) PO PRN (05:45)
[2017-05-26] MEDS: IBUPROFEN 400 MG TABLET (FP) PO PRN (05:46)
[2017-05-26] MEDS ORDERED: METHADONE HCL 5 MG TABLET (FOR DETOX USE ONLY) PO ONE (06:00)
--- NOTE | 2017-05-26 08:54 | DS ---
[facility] Detox Discharge Summary Admission Date: 05/21/17 Discharge Date: 05/26/17 - History Present History: Alcohol Dependence, Opioid Dependence - Physical Exam Results Vital Signs: Vital Signs Temperature 97.3 F L 05/26/17 06:00 Pulse Rate 78 05/26/17 06:00 Respiratory Rate 16 05/26/17 06:00 Blood Pressure 106/64 05/26/17 06:00 O2 Sat by Pulse Oximetry (%) - Treatment Hospital Course: Detox Protocol Followed, Detoxed Safely, Responded well, Discharged Condition Good, Rehab Referral Accepted - Medication Discharge Medications: Ambulatory Orders Clonazepam [Klonopin -] 3 mg PO DAILY 03/13/17 Paroxetine HCl [Paxil] 20 mg PO HS #30 tablet 03/15/17 Quetiapine Fumarate [Seroquel -] 50 mg PO HS #30 tablet 03/15/17 - Diagnosis (1) Insomnia Current Visit: Yes Status: Acute (2) Substance induced mood disorder Current Visit: Yes Status: Acute (3) Alcohol dependence with uncomplicated withdrawal Current Visit: Yes Status: Chronic (4) Anemia Current Visit: Yes Status: Chronic Qualifiers: Anemia type: iron deficiency Iron deficiency anemia type: unspecified iron deficiency Qualified Code(s): D50.9 - Iron deficiency anemia, unspecified (5) Asthma Current Visit: Yes Status: Chronic Qualifiers: Asthma severity: mild Asthma complication type: uncomplicated (6) Depressive disorder Current Visit: Yes Status: Chronic (7) Nicotine dependence Current Visit: Yes Status: Chronic Qualifiers: Nicotine product type: cigarettes Substance use status: uncomplicated Qualified Code(s): F17.210 - Nicotine dependence, cigarettes, uncomplicated (8) Sedative, hypnotic or anxiolytic dependence with withdrawal, uncomplicated Current Visit: Yes Status: Suspected (9) Seizure disorder Current Visit: Yes Status: Suspected (10) Opioid dependence with withdrawal Current Visit: Yes Status: Chronic - AMA Did Patient Leave Against Medical Advice: No (referred back mmtp for reinstatment)
[2017-05-26] MEDS: cloNIDine HCL 0.1 MG TABLET PO SCH (09:03)
[2017-05-26] MEDS: PRENATAL VITAMINS W/ FOLIC ACID TABLET (FP) PO SCH (09:04)
[2017-05-26] MEDS: NICOTINE 14 MG/24 HOURS TOPICAL PATCH TD SCH (09:05)
[2017-05-26 09:41] VITALS: BP 130/86; PULSE 93; TEMP 97.9
== END 2017-05-26 09:25 | disposition home or self-care (01) | DRG 897 ==
LOC: YASAS 12:46 → Y6N 15:20
PROVIDERS: ADMIT Internal Medicine; ATTEND Internal Medicine
PROC: HZ2ZZZZ Detoxification Services for Substance Abuse Treatment (ICD-10-PCS; principal; 2017-05-21)
DX: F11.23 Opioid dependence with withdrawal (principal); F13.230 Sedative, hypnotic or anxiolytic dependence with withdrawal, uncomplicated; F10.230 Alcohol dependence with withdrawal, uncomplicated; F17.210 Nicotine dependence, cigarettes, uncomplicated; F19.24 Other psychoactive substance dependence with psychoactive substance-induced mood disorder; F32.9 Major depressive disorder, single episode, unspecified; G47.00 Insomnia, unspecified; G40.909 Epilepsy, unspecified, not intractable, without status epilepticus; E50.9 Vitamin A deficiency, unspecified; J45.909 Unspecified asthma, uncomplicated
CPT/HCPCS: 36415; 80053; 81003; 81015; 85027; 86593; 87389; 93005; 93010

== ENCOUNTER 2019-06-07 12:43 | Inpatient (IN) | payer OTHER ==
[2019-06-07 14:35] VITALS: BMI 19.8
--- NOTE | 2019-06-07 16:04 | HP ---
CIWA Score Nausea/Vomitin-Mild Nausea/No Vomiting Muscle Tremors: 4-Moderate,w/Arms Extend Anxiety: 2 Agitation: 0-Normal Activity Paroxysmal Sweats: 1-Minimal Palms Moist Orientation: 0-Oriented Tacttile Disturbances: 1-Very Mild Itch/Numbness Auditory Disturbances: 0-None Visual Disturbances: 0-None Headache: 3-Moderate CIWA-Ar Total Score: 12 - Admission Criteria OASAS Guidelines: Admission for Medically Managed Detox: Requires at least one of the followin. CIWA greater than 12 2. Seizures within the past 24 hours 3. Delirium tremens within the past 24 hours 4. Hallucinations within the past 24 hours 5. Acute intervention needed for co occurring medical disorder 6. Acute intervention needed for co occurring psychiatric disorder 7. Severe withdrawal that cannot be handled at a lower level of care (continued vomiting, continued diarrhea, abnormal vital signs) requiring intravenous medication and/or fluids 8. Admitting History and Physical - Admission Chief Complaint: etoh detox History of Present Illness: 48 yo F PMH Asthma, depression/ anxiety, alcohol abuse presents to [facility] for alcohol detox. pt states she started drinking again in 2018 after of fiance Alcohol: started at age 16. has binge drinking episodes. has 3-4 pints a day+ beer; drinks 4-5 days this week. states that last black out was a few days ago. often gets tremulous when she stops drinking. last year has had 2 seizures assoc w/ withdrawal. Goes to [facility] methadone program, on 80 mg now. this is her highest dose shes been on since 2018 Lives in apartment in [place], has 10 year old daughter who lives with the father follows up with psych in [place] for adderall, buspirone, seroquel, klonopin Smokes 5-10 cigarettes daily History Source: Patient Limitations to Obtaining History: No Limitations - Past Medical History ...LMP: 04/30/17 - Smoking History Smoking history: Current every day smoker Have you smoked in the past 12 months: Yes Aproximately how many cigarettes per day: 10 - Alcohol/Substance Use Hx Alcohol Use: Yes Admission ROS [facility] Allergies/Adverse Reactions: Allergies Allergy/AdvReac Type Severity Reaction Status Date / Time No Known Allergies Allergy Verified 06/07/19 14:27 - Ebola screening Have you traveled outside of the country in the last 21 days: No Have you had contact with anyone from an Ebola affected area: No Do you have a fever: No - Review of Systems Respiratory: reports: Wheezing. denies: Orthopnea, Shortness of Breath Cardiac: denies: Chest Pain, Edema GI: reports: Diarrhea, Abdominal cramping Psychiatric: reports: Orientated x3, Anxious Patient History - Patient Medical History Hx Anemia: Yes Hx Asthma: Yes Hx Chronic Obstructive Pulmonary Disease (COPD): No Hx Cancer: No Hx Cardiac Disorders: No Hx Congestive Heart Failure: No Hx Hypertension: No Hx Hypercholesterolemia: No HX Cerebrovascular Accident: No Hx Seizures: Yes () Hx Diabetes: No Hx Gastrointestinal Disorders: No Hx Liver Disease: No Hx Genitourinary Disorders: Yes (UTI) Hx Sexually Transmitted Disorders: No Hx Renal Disease (ESRD): No Hx Thyroid Disease: No Hx Human Immunodeficiency Virus (HIV): No (Negative 2016) Hx Hepatitis C: No Hx Depression: Yes Hx Suicide Attempt: No Hx Bipolar Disorder: No Hx Schizophrenia: No - Patient Surgical History Past Surgical History: No Hx Neurologic Surgery: No Hx Cataract Extraction: No Hx Cardiac Surgery: No Hx Lung Surgery: No Hx Breast Surgery: No Hx Breast Biopsy: No Hx Abdominal Surgery: No Hx Appendectomy: No Hx Cholecystectomy: No Hx Genitourinary Surgery: No Hx Section: No Hx Orthopedic Surgery: No Anesthesia Reaction: No - PPD History Date: 03/16/17 - Reproductive History Last Menstrual Period: 04/30/17 - Smoking Cessation Smoking history: Current every day smoker Have you smoked in the past 12 months: Yes Aproximately how many cigarettes per day: 10 Hx Chewing Tobacco Use: No Initiated information on smoking cessation: Yes 'Breaking Loose' booklet given: 06/07/19 - Substances abused Alcohol Substance route: Oral Frequency: Daily Amount used: VODKA- 3PTS Age of first use: 16 Date of last use: 06/06/19 Admission Physical Exam BHS - Vital Signs Vital Signs: Vital Signs - 24 hr 06/07/19 14:22 Pulse Rate 96 H Respiratory 18 Rate Blood Pressure 141/89 - Physical General Appearance: Yes: Within Normal Limits, No Apparent Distress, Thin, Tremorous, Anxious HEENTM: Yes: Hearing grossly Normal, Normal Voice, STEVE Respiratory: Yes: Lungs Clear, Normal Breath Sounds, No Respiratory Distress, No Accessory Muscle Use Neck: Yes: No masses,lesions,Nodules (L large raised mole on neck), Supple Cardiology: Yes: Regular Rhythm, Regular Rate, S1, S2. No: Edema, JVD, Murmur Abdominal: Yes: Normal Bowel Sounds, Non Tender, Soft. No: Distended Back: No: CVA Tenderness Extremities: Yes: Tremors. No: Swelling, Calf Tenderness Neurological: Yes: bioinformatics support specialist II-XII NML intact, Fully Oriented, Normal Response Integumentary: Yes: Within Normal Limits, Normal Color, Dry, Warm Breathalyzer - Breathalyzer Breathalyzer: 0 Urine Drug Screen - Test Device Lot number: [id number] Expiration date: 12/19/20 - Control Is test valid?: Yes - Results Drug screen NEGATIVE: No Urine drug screen results: AMP-Amphetamines, MTD-Methadone Inpatient Rehab Admission - Rehab Decision to Admit Inpatient rehab admission?: No
--- NOTE | 2019-06-07 16:18 | PN ---
"Teaching Attending Note Name of Resident: Lisa Belle ATTENDING PHYSICIAN STATEMENT I saw and evaluated the patient. I reviewed the resident's note and discussed the case with the resident. I agree with the resident's findings and plan as documented. SUBJECTIVE:pt here requesting detox from etoh use , reports intermittent binge -drinking , most recently x 5 days . + W/D seizure 1 yr ago . OBJECTIVE: wnwd This report was requested by: Indira Gates | Reference #: [id number] Others' Prescriptions Patient Name: Nori Moore Date: 1970 Address: [facility] [place] [address] Sex: Female Rx Written Rx Dispensed Drug Quantity Days Supply Prescriber Name 05/16/2019 06/03/2019 zolpidem tartrate 10 mg tablet 30 30 Saniya Michele NP 05/16/2019 05/16/2019 clonazepam 2 mg tablet 60 30 Saniya Michele NP 05/16/2019 05/16/2019 dextroamp-amphetamin 20 mg tab 60 30 Saniya Michele NP 04/17/2019 04/17/2019 zolpidem tartrate 10 mg tablet 30 30 Saniya Michele NP 04/17/2019 04/17/2019 clonazepam 2 mg tablet 60 30 Saniya Michele NP 04/17/2019 04/17/2019 dextroamp-amphetamin 20 mg tab 60 30 Saniya Michele NP 03/18/2019 03/18/2019 clonazepam 2 mg tablet 60 30 Saniya Michele NP 03/18/2019 03/18/2019 zolpidem tartrate 10 mg tablet 30 30 Saniya Michele NP 03/18/2019 03/18/2019 dextroamp-amphetamin 20 mg tab 60 30 Saniya Michele NP 02/18/2019 02/18/2019 dextroamp-amphetamin 20 mg tab 60 30 Saniya Michele NP 02/18/2019 02/18/2019 zolpidem tartrate 10 mg tablet 30 30 Saniya Michele NP 02/18/2019 02/18/2019 clonazepam 2 mg tablet 60 30 Saniya Michele [employer] 02/14/2019 02/14/2019 clonazepam 2 mg tablet 6 3 Saniya Michele [employer] 02/14/2019 02/14/2019 zolpidem tartrate 10 mg tablet 3 3 Saniya Michele NP 02/14/2019 02/14/2019 dextroamp-amphetamin 20 mg tab 6 3 Saniya Michele NP 01/15/2019 01/15/2019 clonazepam 2 mg tablet 60 30 Saniya Michele NP 01/15/2019 01/15/2019 dextroamp-amphetamin 20 mg tab 60 30 Saniya Michele [employer] 12/14/2018 12/14/2018 clonazepam 2 mg tablet 60 30 Saniya Michele [employer] 12/14/2018 12/14/2018 dextroamp-amphetamin 20 mg tab 60 30 Saniya Michele NP 11/09/2018 11/10/2018 dextroamp-amphetamin 20 mg tab 60 30 Saniya Michele NP 11/09/2018 11/10/2018 clonazepam 2 mg tablet 60 30 Saniya Michele NP 10/11/2018 10/11/2018 dextroamp-amphetamin 20 mg tab 60 30 Saniya Michele NP 10/11/2018 10/11/2018 clonazepam 2 mg tablet 60 30 Saniya Michele [employer] Patient Name: Nori Moore Date: 1970 Address: [address] [place] [address] Sex: Female Rx Written Rx Dispensed Drug Quantity Days Supply Prescriber Name 10/28/2018 10/28/2018 dextroamp-amphetamin 20 mg tab 6 3 [place] 10/28/2018 10/28/2018 clonazepam 2 mg tablet 6 3 [place] 09/12/2018 09/14/2018 dextroamp-amphetamin 20 mg tab 60 30 Saniya Michele [employer] 09/12/2018 09/13/2018 clonazepam 2 mg tablet 60 30 Saniya Michele [employer] 08/16/2018 08/16/2018 clonazepam 2 mg tablet 60 30 Saniya Michele [employer] 08/16/2018 08/16/2018 dextroamp-amphetamin 20 mg tab 60 30 Saniya Michele NP 07/19/2018 07/20/2018 clonazepam 2 mg tablet 60 30 Saniya Michele NP 07/19/2018 07/20/2018 dextroamp-amphetamin 20 mg tab 60 30 Saniya Michele NP 06/21/2018 06/21/2018 clonazepam 2 mg tablet 60 30 Saniya Michele [employer] 06/21/2018 06/21/2018 dextroamp-amphetamin 20 mg tab 60 30 Saniya Michele NP Patient Name: Nori Moore Date: 1970 Address: [address] [place] [address] Sex: Female Rx Written Rx Dispensed Drug Quantity Days Supply Prescriber Name 06/12/2018 06/14/2018 clonazepam 0.5 mg tablet 42 14 Julia Cao MD Vital Signs - 24 hr 06/07/19 14:22 Pulse Rate 96 H Respiratory 18 Rate Blood Pressure 141/89 ASSESSMENT AND PLAN: AUD - Valium detox ( per pt request , refused Librium )"
[2019-06-07] MEDS ORDERED: MAG HYDROX/AL HYDROX/SIMETH 30 ML UNIT-DOSE CUP PO PRN (16:24)
[2019-06-07] MEDS ORDERED: MENTHOL/PHENOL 1 EACH UD MM PRN (16:24)
[2019-06-07] MEDS ORDERED: BISMUTH SUBSALICYLATE 524 MG/30 ML UD PO PRN (16:24)
[2019-06-07] MEDS ORDERED: IBUPROFEN 400 MG TABLET (FP) PO PRN (16:24)
[2019-06-07] MEDS ORDERED: ACETAMINOPHEN 325 MG TABLET (FP) PO PRN ×2 (16:24)
[2019-06-07] MEDS ORDERED: MAGNESIUM CITRATE 300 ML BOTTLE PO PRN (16:24)
[2019-06-07] MEDS: diazePAM 5 MG TABLET PO SCH ×2 (17:32→21:49)
[2019-06-07] MEDS: diazePAM 5 MG TABLET PO PRN (19:10)
[2019-06-07] MEDS: NICOTINE POLACRILEX 2 MG GUM BUC PRN ×2 (19:10→21:10)
[2019-06-07] MEDS: MELATONIN 5 MG TABLETS PO PRN (21:49)
[2019-06-07] MEDS: THIAMINE HCL 100 MG TABLET (FP) PO SCH (21:51)
[2019-06-08] MEDS: diazePAM 5 MG TABLET PO PRN ×5 (00:46→17:14)
[2019-06-08] MEDS: NICOTINE POLACRILEX 2 MG GUM BUC PRN ×7 (00:47→21:01)
[2019-06-08] MEDS: hydrOXYzine PAMOATE 25 MG CAPSULE (FP) PO PRN ×2 (03:23→17:14)
[2019-06-08] MEDS: diazePAM 5 MG TABLET PO SCH ×3 (06:41→21:30)
[2019-06-08] MEDS: PRENATAL VITAMINS W/ FOLIC ACID TABLET (FP) PO SCH (09:16)
[2019-06-08] MEDS: METHADONE HCL 40 MG DISPERSABLE TABLET PO SCH (09:16)
[2019-06-08 11:41] LABS: HEMATOCRIT 34.3 % (32.4-45.2); HEMOGLOBIN 11.4 GM/dL (10.7-15.3); MCH 31.2 pg (25.7-33.7); MCHC 33.3 g/dl (32.0-36.0); MEAN CELL VOLUME 93.7 fl (80-96); MEAN PLT VOLUME 9.5 fl (7.5-11.1); PLATELET COUNT 179 K/MM3 (134-434); RBC 3.66 M/mm3 (3.60-5.2); RDW 14.3 % (11.6-15.6); WHITE BLOOD COUNT 5.5 K/mm3 (4.0-10.0)
[2019-06-08 11:52] LABS: ALBUMIN 3.1 g/dl (3.4-5.0); BILIRUBIN,TOTAL 0.2 mg/dL (0.2-1); BLOOD UREA NITROGEN 13.8 mg/dL (7-18); CALCIUM 8.6 mg/dL (8.5-10.1); CREATININE 0.7 mg/dL (0.55-1.3); POTASSIUM 3.4 mmol/L (3.5-5.1); TOT PROT 6.6 g/dl (6.4-8.2)
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
[2019-06-08] MEDS: THIAMINE HCL 100 MG TABLET (FP) PO SCH (21:30)
[2019-06-08] MEDS: POTASSIUM CHLORIDE TABS 20 MEQ TABLET.ER (FP) PO SCH (21:30)
[2019-06-08] MEDS: MELATONIN 5 MG TABLETS PO PRN (22:37)
[2019-06-09] MEDS: NICOTINE POLACRILEX 2 MG GUM BUC PRN ×9 (01:27→22:34)
[2019-06-09] MEDS: diazePAM 5 MG TABLET PO PRN ×2 (01:32→09:18)
[2019-06-09] MEDS: METHADONE HCL 40 MG DISPERSABLE TABLET PO SCH (05:46)
[2019-06-09] MEDS ORDERED: diazePAM 5 MG TABLET PO SCH (06:00)
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
[2019-06-09] MEDS: POTASSIUM CHLORIDE TABS 20 MEQ TABLET.ER (FP) PO SCH ×2 (10:32→21:04)
[2019-06-09] MEDS: hydrOXYzine PAMOATE 25 MG CAPSULE (FP) PO PRN ×3 (10:32→19:10)
[2019-06-09] MEDS: PRENATAL VITAMINS W/ FOLIC ACID TABLET (FP) PO SCH (10:32)
[2019-06-09] MEDS: chlordiazePOXIDE 5 MG CAPSULE PO SCH ×2 (13:35→21:04)
--- NOTE | 2019-06-09 14:46 | PN ---
S CIWA - CIWA Score Nausea/Vomitin-No Nausea/No Vomiting Muscle Tremors: 3 Anxiety: 3 Agitation: 3 Paroxysmal Sweats: 2 Orientation: 0-Oriented Tacttile Disturbances: 0-None Auditory Disturbances: 0-None Visual Disturbances: 0-None Headache: 0-None Present CIWA-Ar Total Score: 11 S Progress Note (SOAP) Subjective: restless sweats interrupted sleep shakes agitation Objective: 06/09/19 14:45 Vital Signs Temperature 97.1 F L 06/09/19 14:25 Pulse Rate 94 H 06/09/19 14:25 Respiratory Rate 16 06/09/19 14:25 Blood Pressure 131/85 06/09/19 14:25 O2 Sat by Pulse Oximetry (%) Laboratory Tests 06/08/19 06/08/19 06/08/19 07:30 07:30 07:30 WBC 5.5 RBC 3.66 Hgb 11.4 Hct 34.3 D MCV 93.7 MCH 31.2 MCHC 33.3 RDW 14.3 Plt Count 179 D MPV 9.5 Sodium 139 Potassium 3.4 L Chloride 104 Carbon Dioxide 31 Anion Gap 5 L BUN 13.8 Creatinine 0.7 Est GFR (CKD-EPI)AfAm 119.58 Est GFR (CKD-EPI)NonAf 103.18 Random Glucose 77 Calcium 8.6 Total Bilirubin 0.2 AST 14 L ALT 23 Alkaline Phosphatase 62 Total Protein 6.6 Albumin 3.1 L RPR Titer Nonreactive kdur ordered aaox3 ambulating no acute distress Assessment: 06/09/19 14:46 withdrawals Plan: continue with modified librium taper; the valium taper was not helping her increase fluids
[2019-06-09] MEDS: MAGNESIUM HYDROX 2400MG/30ML ORAL SUSPENSION 30 ML CUP PO PRN (17:08)
[2019-06-09] MEDS: THIAMINE HCL 100 MG TABLET (FP) PO SCH (21:04)
[2019-06-09] MEDS: QUEtiapine FUMARATE 100 MG TABLET (FP) PO SCH (21:04)
[2019-06-09] MEDS: MELATONIN 5 MG TABLETS PO PRN (22:34)
[2019-06-10] MEDS ORDERED: diazePAM 5 MG TABLET PO ONE (06:00)
[2019-06-10] MEDS: METHADONE HCL 40 MG DISPERSABLE TABLET PO SCH (06:20)
[2019-06-10] MEDS: NICOTINE POLACRILEX 2 MG GUM BUC PRN ×5 (08:23→21:20)
[2019-06-10] MEDS ORDERED: chlordiazePOXIDE HCL 10 MG CAPSULE PO SCH (09:00)
[2019-06-10] MEDS: PRENATAL VITAMINS W/ FOLIC ACID TABLET (FP) PO SCH (10:04)
[2019-06-10] MEDS: METHOCARBAMOL 500 MG TABLET PO PRN ×2 (10:04→16:35)
[2019-06-10] MEDS: chlordiazePOXIDE HCL 10 MG CAPSULE PO SCH ×2 (10:04→21:20)
[2019-06-10] MEDS: MAGNESIUM HYDROX 2400MG/30ML ORAL SUSPENSION 30 ML CUP PO PRN (10:05)
--- NOTE | 2019-06-10 10:46 | PN ---
S CIWA - CIWA Score Nausea/Vomitin-No Nausea/No Vomiting Muscle Tremors: 2 Anxiety: 2 Agitation: 1-Slight > Activity Paroxysmal Sweats: 1-Minimal Palms Moist Orientation: 0-Oriented Tacttile Disturbances: 0-None Auditory Disturbances: 0-None Visual Disturbances: 0-None Headache: 0-None Present CIWA-Ar Total Score: 6 BHS Progress Note (SOAP) Subjective: shakes anxiety sweats Objective: 06/10/19 10:46 Vital Signs Temperature 97.3 F L 06/10/19 07:01 Pulse Rate 90 06/10/19 07:01 Respiratory Rate 16 06/10/19 07:01 Blood Pressure 110/71 06/10/19 07:01 O2 Sat by Pulse Oximetry (%) aaox3 ambulating no acute distress Assessment: 06/10/19 11:36 withdrawals Plan: continue detox d/c in am
[2019-06-10] MEDS: hydrOXYzine PAMOATE 25 MG CAPSULE (FP) PO PRN ×2 (12:00→20:11)
[2019-06-10] MEDS: chlordiazePOXIDE HCL 10 MG CAPSULE PO PRN ×2 (13:31→17:38)
[2019-06-10] MEDS: QUEtiapine FUMARATE 100 MG TABLET (FP) PO SCH (21:20)
[2019-06-10] MEDS: THIAMINE HCL 100 MG TABLET (FP) PO SCH (21:20)
[2019-06-10] MEDS: MELATONIN 5 MG TABLETS PO PRN (22:11)
[2019-06-11] MEDS: chlordiazePOXIDE HCL 10 MG CAPSULE PO PRN (01:50)
[2019-06-11] MEDS: NICOTINE POLACRILEX 2 MG GUM BUC PRN ×6 (01:54→22:26)
[2019-06-11] MEDS: METHADONE HCL 40 MG DISPERSABLE TABLET PO SCH (05:43)
[2019-06-11] MEDS ORDERED: chlordiazePOXIDE HCL 10 MG CAPSULE PO ONE ×2 (06:00)
[2019-06-11] MEDS: hydrOXYzine PAMOATE 25 MG CAPSULE (FP) PO PRN ×2 (07:58→18:12)
--- NOTE | 2019-06-11 08:21 | DS ---
[facility] Detox Discharge Summary Admission Date: 06/07/19 Discharge Date: 06/11/19 - History Present History: Alcohol Dependence, MMTP - Physical Exam Results Vital Signs: Vital Signs Temperature 98.1 F 06/11/19 06:31 Pulse Rate 94 H 06/11/19 06:31 Respiratory Rate 16 06/11/19 06:31 Blood Pressure 122/84 06/11/19 06:31 O2 Sat by Pulse Oximetry (%) Pertinent Admission Physical Exam Findings: Vital Signs Temperature 98.1 F 06/11/19 06:31 Pulse Rate 94 H 06/11/19 06:31 Respiratory Rate 16 06/11/19 06:31 Blood Pressure 122/84 06/11/19 06:31 O2 Sat by Pulse Oximetry (%) Laboratory Tests 06/07/19 06/08/19 06/08/19 15:57 07:30 07:30 WBC 5.5 RBC 3.66 Hgb 11.4 Hct 34.3 D MCV 93.7 MCH 31.2 MCHC 33.3 RDW 14.3 Plt Count 179 D MPV 9.5 Sodium 139 Potassium 3.4 L Chloride 104 Carbon Dioxide 31 Anion Gap 5 L BUN 13.8 Creatinine 0.7 Est GFR (CKD-EPI)AfAm 119.58 Est GFR (CKD-EPI)NonAf 103.18 Random Glucose 77 Calcium 8.6 Total Bilirubin 0.2 AST 14 L ALT 23 Alkaline Phosphatase 62 Total Protein 6.6 Albumin 3.1 L POC Urine HCG, Qual Negative RPR Titer 06/08/19 07:30 WBC RBC Hgb Hct MCV MCH MCHC RDW Plt Count MPV Sodium Potassium Chloride Carbon Dioxide Anion Gap BUN Creatinine Est GFR (CKD-EPI)AfAm Est GFR (CKD-EPI)NonAf Random Glucose Calcium Total Bilirubin AST ALT Alkaline Phosphatase Total Protein Albumin POC Urine HCG, Qual RPR Titer Nonreactive aaox3 ambulating no acute distress - Treatment Hospital Course: Detox Protocol Followed, Detoxed Safely, Responded well, Discharged Condition Good, Rehab Referral Accepted - Medication Discharge Medications: Ambulatory Orders Buspirone HCl 25 mg PO DAILY 06/07/19 Quetiapine Fumarate [Seroquel -] 100 mg PO HS 06/07/19 - Diagnosis (1) Alcohol dependence with uncomplicated withdrawal Current Visit: Yes Status: Chronic (2) Substance induced mood disorder Current Visit: Yes Status: Acute (3) Substance-induced sleep disorder Current Visit: Yes Status: Acute (4) Depressive disorder Current Visit: Yes Status: Chronic (5) Insomnia Current Visit: No Status: Acute (6) ADHD (attention deficit hyperactivity disorder) Current Visit: No Status: Chronic (7) Asthma Current Visit: Yes Status: Chronic Qualifiers: Asthma severity: mild Asthma complication type: uncomplicated (8) Nicotine dependence Current Visit: Yes Status: Chronic Qualifiers: Nicotine product type: cigarettes Substance use status: uncomplicated Qualified Code(s): F17.210 - Nicotine dependence, cigarettes, uncomplicated (9) Sedative, hypnotic or anxiolytic dependence with withdrawal, uncomplicated Current Visit: Yes Status: Chronic - AMA Did Patient Leave Against Medical Advice: No
[2019-06-11] MEDS: PRENATAL VITAMINS W/ FOLIC ACID TABLET (FP) PO SCH (10:09)
[2019-06-11] MEDS: METHOCARBAMOL 500 MG TABLET PO PRN ×2 (11:52→18:16)
--- NOTE | 2019-06-11 14:27 | HP ---
[facility] Rehab Assess/Revision - Admission History Admitted to Rehab from: [facility] Date of Admission to Rehab: 06/11/19 - Vital signs Vital Signs: Vital Signs Period Temp Pulse Resp BP Sys/Perkins Pulse Ox Last 24 Hr 96.1 F-98.1 F 81-96 16-20 117-129/71-84 Extremities/skin:No edema,skin intact; Active ROM all extremities. - Findings Detox History & Physical reviewed: Yes Concur with findings: Yes Comments/Additional Findings: Pt is a 48 y/o female with a hx of ANIBAL-alcohol admitted to [facility] from [facility] this afternoon. Pt is on Methadone 80 mg po daily, last dosed on today. Pt reports she has no current PCP but goes to [facility] ER when needing medical care. However has a psych MD in [place] for psych/med management. PMHx:Asthma; Anemia, alcohol withdrawal seizure hx. Psych Hx:Depression(on meds) Inpatient Rehab Admission - Rehab Decision to Admit Inpatient rehab admission?: Yes - Initial Determination Are CD services needed?: Yes Free of communicable disease: Yes Not in need of hospitalization: Yes - Rehab Admission Criteria Previous failed treatment: Yes Poor recovery environment: Yes Comorbidities: Yes Lacks judgement: Yes Patient is meeting Inpatient Rehab admission criteria:: Yes
--- NOTE | 2019-06-11 14:48 | PREP.REFER ---
HIV PrEP/PEP - PrEP HIV Risk Assessment When was your last HIV test?: 04/08 HIV Test offered: Accepted Are you concerned about any sexual encounters past 6 months?: No Have you had a STI in the last 6 months?: No Have you shared needles or other equipment?: No Are you interested in daily medication to help prevent HIV?: No Recommendation: None at this time Comment: last HIV screen Negative. pt not interested on preventive pill at this time.
[2019-06-11] MEDS ORDERED: ALBUTEROL SO4 8 GM HFA INHALER IH PRN (15:39)
[2019-06-11] MEDS ORDERED: PT OWN MED DRAWER 7, Y5N ONE (15:39)
[2019-06-11] MEDS: QUEtiapine FUMARATE 100 MG TABLET (FP) PO SCH (22:25)
[2019-06-11] MEDS: THIAMINE HCL 100 MG TABLET (FP) PO SCH (22:25)
[2019-06-12] MEDS ORDERED: chlordiazePOXIDE HCL 10 MG CAPSULE PO PRN
[2019-06-12] MEDS: METHOCARBAMOL 500 MG TABLET PO PRN ×2 (00:04→21:27)
[2019-06-12] MEDS: hydrOXYzine PAMOATE 25 MG CAPSULE (FP) PO PRN ×4 (00:05→21:27)
[2019-06-12] MEDS: METHADONE HCL 40 MG DISPERSABLE TABLET PO SCH (06:29)
[2019-06-12] MEDS: NICOTINE POLACRILEX 2 MG GUM BUC PRN ×5 (06:30→21:30)
[2019-06-12] MEDS: PRENATAL VITAMINS W/ FOLIC ACID TABLET (FP) PO SCH (09:48)
[2019-06-12 12:29] LABS: INR 0.83 (0.83-1.09); PROTHROMBIN TIME (PATIENT) 9.8 SEC (9.7-13.0)
[2019-06-12 12:55] LABS: ALBUMIN 3.4 g/dl (3.4-5.0); BILIRUBIN,TOTAL 0.3 mg/dL (0.2-1); BLOOD UREA NITROGEN 17.1 mg/dL (7-18); CALCIUM 9.3 mg/dL (8.5-10.1); CREATININE 0.6 mg/dL (0.55-1.3); POTASSIUM 4.4 mmol/L (3.5-5.1); TOT PROT 7.3 g/dl (6.4-8.2)
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
[2019-06-12 16:30] LABS: EPI CELLS 3.6 /HPF (0-5/HPF); HYALINE CASTS 1 /lpf (0-8); URINE APPEARANCE CLOUDY; URINE BACTERIA 67.4 /hpf (NEGATIVE); URINE BILIRUBIN NEGATIVE (NEGATIVE); URINE COLOR ORANGE; URINE GLUCOSE (UA) NEGATIVE (NEGATIVE); URINE KETONE NEGATIVE (NEGATIVE); URINE LEUK ESTERASE TRACE (NEGATIVE); URINE NITRITE NEGATIVE (NEGATIVE); URINE PROTEIN 1+ (NEGATIVE); URINE RBC 340 /hpf (0-4); URINE UROBILINOGEN 0.2 mg/dL (0.2-1.0); URINE WBC 5 /hpf (0-5)
[2019-06-12] MEDS: THIAMINE HCL 100 MG TABLET (FP) PO SCH (21:27)
[2019-06-12] MEDS: QUEtiapine FUMARATE 100 MG TABLET (FP) PO SCH (21:29)
[2019-06-13] MEDS: NICOTINE POLACRILEX 2 MG GUM BUC PRN ×8 (03:40→23:26)
[2019-06-13] MEDS: hydrOXYzine PAMOATE 25 MG CAPSULE (FP) PO PRN (06:13)
[2019-06-13] MEDS: METHADONE HCL 40 MG DISPERSABLE TABLET PO SCH (06:13)
[2019-06-13] MEDS: METHOCARBAMOL 500 MG TABLET PO PRN (06:15)
[2019-06-13] MEDS: PRENATAL VITAMINS W/ FOLIC ACID TABLET (FP) PO SCH (09:37)
[2019-06-13] MEDS: hydrOXYzine PAMOATE 50 MG CAPSULE (FP) PO PRN ×3 (12:32→21:53)
[2019-06-13] MEDS: MELATONIN 5 MG TABLETS PO PRN (21:52)
[2019-06-13] MEDS: THIAMINE HCL 100 MG TABLET (FP) PO SCH (21:52)
[2019-06-13] MEDS: QUEtiapine FUMARATE 100 MG TABLET (FP) PO SCH (21:53)
[2019-06-14] MEDS: METHADONE HCL 40 MG DISPERSABLE TABLET PO SCH (06:31)
[2019-06-14] MEDS: NICOTINE POLACRILEX 2 MG GUM BUC PRN ×6 (06:32→23:39)
[2019-06-14] MEDS: hydrOXYzine PAMOATE 50 MG CAPSULE (FP) PO PRN ×4 (06:32→23:38)
[2019-06-14] MEDS: PRENATAL VITAMINS W/ FOLIC ACID TABLET (FP) PO SCH (09:37)
[2019-06-14] MEDS: THIAMINE HCL 100 MG TABLET (FP) PO SCH (21:38)
[2019-06-14] MEDS: QUEtiapine FUMARATE 100 MG TABLET (FP) PO SCH (21:38)
[2019-06-14] MEDS: MELATONIN 5 MG TABLETS PO PRN (21:38)
[2019-06-15] MEDS: METHADONE HCL 40 MG DISPERSABLE TABLET PO SCH (06:21)
[2019-06-15] MEDS: hydrOXYzine PAMOATE 50 MG CAPSULE (FP) PO PRN ×3 (06:22→18:08)
[2019-06-15] MEDS: NICOTINE POLACRILEX 2 MG GUM BUC PRN ×7 (06:22→23:34)
[2019-06-15] MEDS: PRENATAL VITAMINS W/ FOLIC ACID TABLET (FP) PO SCH (09:12)
[2019-06-15] MEDS: QUEtiapine FUMARATE 100 MG TABLET (FP) PO SCH (21:26)
[2019-06-15] MEDS: MELATONIN 5 MG TABLETS PO PRN (21:26)
[2019-06-15] MEDS: THIAMINE HCL 100 MG TABLET (FP) PO SCH (21:26)
[2019-06-16] MEDS: NICOTINE POLACRILEX 2 MG GUM BUC PRN ×8 (01:40→21:24)
[2019-06-16] MEDS: hydrOXYzine PAMOATE 50 MG CAPSULE (FP) PO PRN ×4 (01:40→17:24)
[2019-06-16] MEDS: METHADONE HCL 40 MG DISPERSABLE TABLET PO SCH (06:17)
[2019-06-16] MEDS: PRENATAL VITAMINS W/ FOLIC ACID TABLET (FP) PO SCH (09:25)
[2019-06-16] MEDS: THIAMINE HCL 100 MG TABLET (FP) PO SCH (21:24)
[2019-06-16] MEDS: MELATONIN 5 MG TABLETS PO PRN (21:24)
[2019-06-16] MEDS: QUEtiapine FUMARATE 100 MG TABLET (FP) PO SCH (21:24)
[2019-06-17] MEDS: METHADONE HCL 40 MG DISPERSABLE TABLET PO SCH (06:35)
[2019-06-17] MEDS: hydrOXYzine PAMOATE 50 MG CAPSULE (FP) PO PRN ×2 (06:36→13:07)
[2019-06-17] MEDS: NICOTINE POLACRILEX 2 MG GUM BUC PRN ×5 (06:37→21:42)
[2019-06-17] MEDS: PRENATAL VITAMINS W/ FOLIC ACID TABLET (FP) PO SCH (10:21)
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
[2019-06-17] MEDS: THIAMINE HCL 100 MG TABLET (FP) PO SCH (21:41)
[2019-06-17] MEDS: QUEtiapine FUMARATE 100 MG TABLET (FP) PO SCH (21:41)
[2019-06-17] MEDS: MELATONIN 5 MG TABLETS PO PRN (21:42)
[2019-06-18] MEDS: NICOTINE POLACRILEX 2 MG GUM BUC PRN ×6 (02:48→23:27)
[2019-06-18] MEDS: METHADONE HCL 40 MG DISPERSABLE TABLET PO SCH (06:23)
[2019-06-18] MEDS ORDERED: cloNIDine HCL 0.1 MG TABLET PO ONE (07:48)
--- NOTE | 2019-06-18 07:51 | PN ---
[facility] Progress Note Note: Patient's blood pressure this morning is B/P 155/90. Patient is asymptomatic Vital Signs Temperature 98.5 F 06/18/19 06:58 Pulse Rate 88 06/18/19 07:37 Respiratory Rate 18 06/18/19 07:37 Blood Pressure 155/90 06/18/19 07:37 O2 Sat by Pulse Oximetry (%) Action: Clonidine 0.1mg tablet oral ordered
[2019-06-18] MEDS: PRENATAL VITAMINS W/ FOLIC ACID TABLET (FP) PO SCH (10:23)
[2019-06-18] MEDS: COLLOIDAL OATMEAL 1 BAR EACH TP PRN (10:25)
[2019-06-18] MEDS: TETRAHYDROZOLINE HCL EYE DROPS OS PRN (10:25)
[2019-06-18] MEDS: hydrOXYzine PAMOATE 50 MG CAPSULE (FP) PO PRN ×2 (10:30→17:56)
[2019-06-18] MEDS: MELATONIN 5 MG TABLETS PO PRN (21:18)
[2019-06-18] MEDS: THIAMINE HCL 100 MG TABLET (FP) PO SCH (21:18)
[2019-06-18] MEDS: QUEtiapine FUMARATE 100 MG TABLET (FP) PO SCH (21:18)
[2019-06-19] MEDS: METHADONE HCL 40 MG DISPERSABLE TABLET PO SCH (06:09)
[2019-06-19] MEDS: hydrOXYzine PAMOATE 50 MG CAPSULE (FP) PO PRN ×3 (06:10→21:11)
[2019-06-19] MEDS: NICOTINE POLACRILEX 2 MG GUM BUC PRN ×5 (06:11→21:12)
[2019-06-19] MEDS: PRENATAL VITAMINS W/ FOLIC ACID TABLET (FP) PO SCH (09:58)
--- NOTE | 2019-06-19 13:23 | PN ---
[facility] Progress Note Note: Patient reports feeling anxious and sleeping poorly despite taking Seroquel 100 mg/hs and Vistaril 50 mg po Q 4hrs prn for anxiety. Apparently she is not using Melatonin 5 mg/hs prn for insomnia which is ordered for her. Requests to be ordered Gabapentin which she used successfully in the past for anxiety. she will be started on Gabapentin 200 mg/tid and Melatonin dosage will be increased to 10 mg/hs prn
[2019-06-19] MEDS: GABAPENTIN 100 MG CAPSULE PO SCH ×2 (14:30→21:11)
[2019-06-19] MEDS ORDERED: PT OWN MED DRAWER 7, Y5N ONE (17:24)
[2019-06-19] MEDS: TETRAHYDROZOLINE HCL EYE DROPS OS PRN (17:26)
[2019-06-19] MEDS: MELATONIN 5 MG TABLETS PO PRN (21:11)
[2019-06-19] MEDS: THIAMINE HCL 100 MG TABLET (FP) PO SCH (21:11)
[2019-06-19] MEDS: QUEtiapine FUMARATE 100 MG TABLET (FP) PO SCH (21:11)
[2019-06-20] MEDS: METHADONE HCL 40 MG DISPERSABLE TABLET PO SCH (06:39)
[2019-06-20] MEDS: GABAPENTIN 100 MG CAPSULE PO SCH ×3 (06:40→21:12)
[2019-06-20] MEDS: NICOTINE POLACRILEX 2 MG GUM BUC PRN ×3 (06:40→13:40)
[2019-06-20] MEDS: PRENATAL VITAMINS W/ FOLIC ACID TABLET (FP) PO SCH (10:16)
[2019-06-20] MEDS: MAGNESIUM HYDROX 2400MG/30ML ORAL SUSPENSION 30 ML CUP PO PRN (10:17)
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
[2019-06-20] MEDS: THIAMINE HCL 100 MG TABLET (FP) PO SCH (21:10)
[2019-06-20] MEDS: MELATONIN 5 MG TABLETS PO PRN (21:11)
[2019-06-20] MEDS: QUEtiapine FUMARATE 100 MG TABLET (FP) PO SCH (21:12)
[2019-06-20] MEDS: hydrOXYzine PAMOATE 50 MG CAPSULE (FP) PO PRN (21:12)
[2019-06-21] MEDS: NICOTINE POLACRILEX 2 MG GUM BUC PRN ×3 (01:02→08:55)
[2019-06-21] MEDS: METHADONE HCL 40 MG DISPERSABLE TABLET PO SCH (06:24)
[2019-06-21] MEDS: GABAPENTIN 100 MG CAPSULE PO SCH (06:25)
[2019-06-21 07:14] VITALS: BP 135/84; PULSE 105; TEMP 98.1
--- NOTE | 2019-06-21 08:29 | DS ---
[facility] Rehab Discharge Summary - [facility] Rehab Discharge Summary Admission Date: 06/07/19 Discharge Date: 06/21/19 - History Present History: Alcohol dependence Additional Comments: Pt is a 48 y/o female admitted to rehab and scheduled to discharge today. Pt reports she has a mental health provider but will be connected to primary care when she settles at her referral program in [place]. Pertinent Past History: Asthma ADHD Mood Disorder - Discharge Physical Exam Vital Signs: Vital Signs Temperature 98.1 F 06/21/19 07:14 Pulse Rate 105 H 06/21/19 07:14 Respiratory Rate 16 06/21/19 07:14 Blood Pressure 135/84 06/21/19 07:14 O2 Sat by Pulse Oximetry (%) Alert o x 3,well groomed,denies s/h/i nad oob ambulating with steady gait extremities/skin:no edema,skin intact. Pertinent Admission Physical Exam Findings: Laboratory Tests 06/07/19 06/08/19 06/08/19 15:57 07:30 07:30 WBC 5.5 RBC 3.66 Hgb 11.4 Hct 34.3 D MCV 93.7 MCH 31.2 MCHC 33.3 RDW 14.3 Plt Count 179 D MPV 9.5 PT with INR INR Sodium 139 Potassium 3.4 L Chloride 104 Carbon Dioxide 31 Anion Gap 5 L BUN 13.8 Creatinine 0.7 Est GFR (CKD-EPI)AfAm 119.58 Est GFR (CKD-EPI)NonAf 103.18 Random Glucose 77 Calcium 8.6 Total Bilirubin 0.2 AST 14 L ALT 23 Alkaline Phosphatase 62 Total Protein 6.6 Albumin 3.1 L Urine Color Urine Appearance Urine pH Ur Specific [place] Urine Protein Urine Glucose (UA) Urine Ketones Urine Blood Urine Nitrite Urine Bilirubin Urine Urobilinogen Ur Leukocyte Esterase Urine WBC (Auto) Urine RBC (Auto) Urine Casts (Auto) U Epithel Cells (Auto) Urine Bacteria (Auto) POC Urine HCG, Qual Negative RPR Titer 06/08/19 06/12/19 06/12/19 07:30 08:20 08:20 WBC RBC Hgb Hct MCV MCH MCHC RDW Plt Count MPV PT with INR 9.80 INR 0.83 Sodium 137 Potassium 4.4 Chloride 101 Carbon Dioxide 31 Anion Gap 5 L BUN 17.1 Creatinine 0.6 Est GFR (CKD-EPI)AfAm 125.80 Est GFR (CKD-EPI)NonAf 108.54 Random Glucose 96 Calcium 9.3 Total Bilirubin 0.3 AST 31 ALT 43 Alkaline Phosphatase 66 Total Protein 7.3 Albumin 3.4 Urine Color Urine Appearance Urine pH Ur Specific [place] Urine Protein Urine Glucose (UA) Urine Ketones Urine Blood Urine Nitrite Urine Bilirubin Urine Urobilinogen Ur Leukocyte Esterase Urine WBC (Auto) Urine RBC (Auto) Urine Casts (Auto) U Epithel Cells (Auto) Urine Bacteria (Auto) POC Urine HCG, Qual RPR Titer Nonreactive 06/12/19 11:45 WBC RBC Hgb Hct MCV MCH MCHC RDW Plt Count MPV PT with INR INR Sodium Potassium Chloride Carbon Dioxide Anion Gap BUN Creatinine Est GFR (CKD-EPI)AfAm Est GFR (CKD-EPI)NonAf Random Glucose Calcium Total Bilirubin AST ALT Alkaline Phosphatase Total Protein Albumin Urine Color [place] Urine Appearance Cloudy Urine pH 5.0 Ur Specific [place] 1.019 Urine Protein 1+ H Urine Glucose (UA) Negative Urine Ketones Negative Urine Blood 3+ H Urine Nitrite Negative Urine Bilirubin Negative Urine Urobilinogen 0.2 Ur Leukocyte Esterase Trace Urine WBC (Auto) 5 Urine RBC (Auto) 340 Urine Casts (Auto) 1 U Epithel Cells (Auto) 3.6 Urine Bacteria (Auto) 67.4 POC Urine HCG, Qual RPR Titer - Treatment Discharge Condition: Discharge condition good Hospital Course: Rehabilitated safely CD aftercare referral accepted Participated in group activities and individual sessions while in rehab treatment. - Medication Discharge Medications: Ambulatory Orders Buspirone HCl 25 mg PO DAILY 06/07/19 Quetiapine Fumarate [Seroquel -] 100 mg PO HS 06/07/19 Dextroamphetamine/Amphetamine [Adderall 10 mg Tablet] 20 mg PO BID 06/11/19 Zolpidem Tartrate [Ambien] 10 mg PO HS PRN 06/11/19 Albuterol Sulfate Inhaler - [Ventolin HFA Inhaler -] 2 puff IH Q6H PRN #1 inhaler 06/20/19 - Medication-Assisted Treatment (MAT) Medication-Assisted Treatment (MAT): No - Discharge Instructions Diet, activity, other medical instructions: Diet:Regular Activity:oob ad krishna Other medical instructions:follow up with CD aftercare referral at [place], [place] as scheduled. follow up with primary care within 1-2 weeks after discharge and your mental Health within 1 week after discharge. - Diagnosis (1) Alcohol use disorder Status: Chronic (2) Asthma Status: Chronic Qualifiers: Asthma severity: unspecified severity Asthma persistence: unspecified Asthma complication type: uncomplicated Qualified Code(s): J45.909 - Unspecified asthma, uncomplicated (3) Benzodiazepine dependence Status: Chronic (4) Nicotine dependence Status: Chronic Qualifiers: Nicotine product type: cigarettes Substance use status: uncomplicated Qualified Code(s): F17.210 - Nicotine dependence, cigarettes, uncomplicated - Follow-up Referral Minutes to complete discharge: 20 - AMA Did Patient Leave Against Medical Advice: No
[2019-06-21] MEDS: COLLOIDAL OATMEAL 1 BAR EACH TP PRN (08:54)
[2019-06-21] MEDS: PRENATAL VITAMINS W/ FOLIC ACID TABLET (FP) PO SCH (09:01)
== END 2019-06-21 11:05 | disposition home or self-care (01) | DRG 895 ==
LOC: YASAS 12:43 → Y6N 16:53 → Y3E 06-11 13:43
PROVIDERS: ADMIT Allergy & Immunology; ATTEND Allergy & Immunology
PROC: HZ2ZZZZ Detoxification Services for Substance Abuse Treatment (ICD-10-PCS; 2019-06-07)
PROC: HZ42ZZZ Group Counseling for Substance Abuse Treatment, Cognitive-Behavioral (ICD-10-PCS; principal; 2019-06-11)
DX: F10.20 Alcohol dependence, uncomplicated (principal); F11.20 Opioid dependence, uncomplicated; F13.20 Sedative, hypnotic or anxiolytic dependence, uncomplicated; F19.282 Other psychoactive substance dependence with psychoactive substance-induced sleep disorder; F17.210 Nicotine dependence, cigarettes, uncomplicated; F19.24 Other psychoactive substance dependence with psychoactive substance-induced mood disorder; F32.9 Major depressive disorder, single episode, unspecified; F90.9 Attention-deficit hyperactivity disorder, unspecified type; F41.9 Anxiety disorder, unspecified; J45.909 Unspecified asthma, uncomplicated; E87.6 Hypokalemia; G47.00 Insomnia, unspecified; M25.531 Pain in right wrist; M79.641 Pain in right hand; W18.2XXA Fall in (into) shower or empty bathtub, initial encounter; Y93.89 Activity, other specified; Y92.031 Bathroom in apartment as the place of occurrence of the external cause; Y99.8 Other external cause status; Z86.2 Personal history of diseases of the blood and blood-forming organs and certain disorders involving the immune mechanism; Z86.69 Personal history of other diseases of the nervous system and sense organs; Z87.440 Personal history of urinary (tract) infections
CPT/HCPCS: 36415; 73110-TC-RT-FY; 73130-TC-RT-FY; 80053; 81003; 81025; 85027; 85610; 86593; J0735

== ENCOUNTER 2019-12-31 12:38 | Inpatient (IN) | payer OTHER ==
--- NOTE | 2019-12-31 13:48 | BHS.RME ---
Substance Use & Tx History - Substance Use History Alcohol Substance amount: 2-3 pints Vodka, beer 3 x 24 ounce Frequency of use: Daily Substance route: Oral Date of Last Use: 12/31/19 Heroin Substance amount: 2-3 bags Frequency of use: Daily Substance route: Inhalation (ex: sniffing or snorting) Date of Last Use: 12/29/19 Nicotine Substance amount: 2 Frequency of use: Daily Substance route: Smoking Date of Last Use: 12/31/19 Physical/Psych/Mental Status - Behavior General Behavior: Increased activity (restlessness, agitation) Eye Contact: Normal - Cooperativeness Cooperativeness: Cooperative - Thinking Thought Processes: Tight Thought content: Future oriented - Physical Health Problems Is patient presently having any pain?: Yes (stomach upset) Does patient presently have any injuries (include location): No Does patient currently have a fever: No CIWA Nausea/Vomitin Muscle Tremors: 4-Moderate,w/Arms Extend Anxiety: 3 Agitation: 1-Slight > Activity Paroxysmal Sweats: 3 Orientation: 0-Oriented Tacttile Disturbances: 1-Very Mild Itch/Numbness Auditory Disturbances: 2-Mild Harshness/Frighten Visual Disturbances: 0-None Headache: 0-None Present CIWA-Ar Total Score: 17
[2019-12-31] MEDS ORDERED: MAGNESIUM CITRATE 300 ML BOTTLE PO PRN (16:10)
[2019-12-31] MEDS ORDERED: ACETAMINOPHEN 325 MG TABLET (FP) PO PRN ×2 (16:10)
[2019-12-31] MEDS ORDERED: MAGNESIUM HYDROX 2400MG/30ML ORAL SUSPENSION 30 ML CUP PO PRN (16:10)
[2019-12-31] MEDS ORDERED: MAG HYDROX/AL HYDROX/SIMETH 30 ML UNIT-DOSE CUP PO PRN (16:10)
[2019-12-31] MEDS ORDERED: MENTHOL/PHENOL 1 EACH UD MM PRN (16:10)
[2019-12-31] MEDS ORDERED: chlordiazePOXIDE HCL 25 MG CAPSULE PO PRN (16:10)
[2019-12-31] MEDS ORDERED: BISMUTH SUBSALICYLATE 524 MG/30 ML UD PO PRN (16:10)
[2019-12-31] MEDS ORDERED: ONDANSETRON *ODT* 4 MG TABLET SL PRN (16:10)
[2019-12-31] MEDS ORDERED: IBUPROFEN 400 MG TABLET (FP) PO PRN (16:10)
--- NOTE | 2019-12-31 16:10 | HP ---
CIWA Score Nausea/Vomitin Muscle Tremors: 4-Moderate,w/Arms Extend Anxiety: 3 Agitation: 1-Slight > Activity Paroxysmal Sweats: 3 Orientation: 0-Oriented Tacttile Disturbances: 1-Very Mild Itch/Numbness Auditory Disturbances: 2-Mild Harshness/Frighten Visual Disturbances: 0-None Headache: 0-None Present CIWA-Ar Total Score: 17 - Admission Criteria OASAS Guidelines: Admission for Medically Managed Detox: Requires at least one of the followin. CIWA greater than 12 2. Seizures within the past 24 hours 3. Delirium tremens within the past 24 hours 4. Hallucinations within the past 24 hours 5. Acute intervention needed for co occurring medical disorder 6. Acute intervention needed for co occurring psychiatric disorder 7. Severe withdrawal that cannot be handled at a lower level of care (continued vomiting, continued diarrhea, abnormal vital signs) requiring intravenous medication and/or fluids 8. Admitting History and Physical - Admission History of Present Illness: Patient is a 49 year old female with history of athma, depression, alcohol use disorderm opiate use disorder (on Methadone program) presents for detox. PMH: asthma PSH: denies Social: lives in apartment, by herself Psych: depression Legal: denies Substance Use History Alcohol Substance amount: 2-3 pints Vodka, beer 3 x 24 ounce Frequency of use: Daily Substance route: Oral Date of Last Use: 12/31/19 Heroin Substance amount: 2-3 bags Frequency of use: Daily Substance route: Inhalation (ex: sniffing or snorting) Date of Last Use: 12/29/19 Nicotine Substance amount: 2 Frequency of use: Daily Substance route: Smoking Date of Last Use: 12/31/19 History Source: Patient Limitations to Obtaining History: No Limitations - Past Medical History ...LMP: 04/30/17 - Smoking History Smoking history: Current every day smoker Have you smoked in the past 12 months: Yes Aproximately how many cigarettes per day: 10 - Alcohol/Substance Use Hx Alcohol Use: Yes Admission ROS [facility] Allergies/Adverse Reactions: Allergies Allergy/AdvReac Type Severity Reaction Status Date / Time No Known Allergies Allergy Verified 06/07/19 14:27 Exam Limitations: No Limitations - Ebola screening Have you traveled outside of the country in the last 21 days: No Have you been sick,other than usual withdrawal symptoms: No Do you have a fever: No - Review of Systems Constitutional: No Symptoms Reported EENT: denies: Blurred Vision, Hearing Loss Respiratory: denies: Cough, Shortness of Breath Cardiac: reports: Palpitations, Chest Tightness GI: denies: Nausea, Vomiting, Abdominal cramping : denies: Burning, Dysuria Neuro: denies: Numbness, Paresthesia, Weakness Hematology: denies: Blood Clots, Easy Bleeding Psychiatric: reports: Depressed (denies suicidal, homicidal ideation) Patient History - Patient Medical History Hx Anemia: Yes Hx Asthma: Yes Hx Chronic Obstructive Pulmonary Disease (COPD): No Hx Cancer: No Hx Cardiac Disorders: No Hx Congestive Heart Failure: No Hx Hypertension: No Hx Hypercholesterolemia: No HX Cerebrovascular Accident: No Hx Seizures: Yes () Hx Diabetes: No Hx Gastrointestinal Disorders: No Hx Liver Disease: No Hx Genitourinary Disorders: Yes (UTI) Hx Sexually Transmitted Disorders: No Hx Renal Disease (ESRD): No Hx Thyroid Disease: No Hx Human Immunodeficiency Virus (HIV): No (Negative 2016) Hx Hepatitis C: No Hx Depression: Yes Hx Suicide Attempt: No Hx Bipolar Disorder: No Hx Schizophrenia: No - Patient Surgical History Past Surgical History: No Hx Neurologic Surgery: No Hx Cataract Extraction: No Hx Cardiac Surgery: No Hx Lung Surgery: No Hx Breast Surgery: No Hx Breast Biopsy: No Hx Abdominal Surgery: No Hx Appendectomy: No Hx Cholecystectomy: No Hx Genitourinary Surgery: No Hx Section: No Hx Orthopedic Surgery: No Anesthesia Reaction: No - PPD History Previous Implant?: Yes Date: 03/16/17 Results: 0 mm. PPD to be Administered?: Yes - Reproductive History Patient is a Female of Child Bearing Age (11 -55 yrs old): Yes Last Menstrual Period: 04/30/17 Patient : No - Smoking Cessation Smoking history: Current every day smoker Have you smoked in the past 12 months: Yes Aproximately how many cigarettes per day: 10 Cigars Per Day: 0 Hx Chewing Tobacco Use: No Initiated information on smoking cessation: Yes 'Breaking Loose' booklet given: 12/31/19 - Substance & Tx. History Hx Alcohol Use: Yes Substance Use Type: Heroin, Tranquilizers Hx Substance Use Treatment: Yes Admission Physical Exam [facility] - Physical General Appearance: Yes: Disheveled, Mild Distress HEENTM: Yes: EOMI, Hearing grossly Normal, STEVE Respiratory: Yes: Lungs Clear, Normal Breath Sounds, No Respiratory Distress, No Accessory Muscle Use Neck: Yes: Supple Cardiology: Yes: Regular Rhythm, Regular Rate, S1, S2 Abdominal: Yes: Normal Bowel Sounds, Non Tender, Flat, Soft Extremities: Yes: Within Normal Limits, Normal Range of Motion Neurological: Yes: Within Normal Limits, Motor Strength 5/5 Integumentary: Yes: Dry, Warm - Diagnostic (1) Alcohol dependence with uncomplicated withdrawal Current Visit: Yes Status: Acute (2) Asthma Current Visit: No Status: Chronic Qualifiers: (3) Benzodiazepine dependence Current Visit: No Status: Chronic (4) Depressive disorder Current Visit: No Status: Chronic Comment: By history. Declines antidepressant medications (SSRIs). (5) Nicotine dependence Current Visit: No Status: Chronic Qualifiers: Breathalyzer - Breathalyzer Breathalyzer: 0 Urine Drug Screen - Test Device Lot number: [id number] Expiration date: 12/23/21 - Control Is test valid?: Yes - Results Drug screen NEGATIVE: No Urine drug screen results: MOP-Opiates, MTD-Methadone, BZO-Benzodiazepines Inpatient Rehab Admission - Rehab Decision to Admit Inpatient rehab admission?: No
[2019-12-31] MEDS ORDERED: chlordiazePOXIDE HCL 25 MG CAPSULE PO SCH (17:00)
[2019-12-31 17:35] VITALS: BMI 21.9
[2019-12-31] MEDS ORDERED: hydrOXYzine PAMOATE 25 MG CAPSULE (FP) PO SCH (18:00)
--- NOTE | 2019-12-31 18:39 | PN ---
Teaching Attending Note Name of Resident: Dean Ordonez ATTENDING PHYSICIAN STATEMENT I saw and evaluated the patient. I reviewed the resident's note and discussed the case with the resident. I agree with the resident's findings and plan as documented. SUBJECTIVE: 49 y.o. female pt requesting detox from alcohol use, reports tremors if not drinking , denies seizures . on MMTP 100 mg per pt , latest taken today . PMHx : asthma OBJECTIVE: wnwd , ambulating freely , christine UE tremors Vital Signs - 24 hr 12/31/19 16:51 Temperature 97.6 F Pulse Rate 77 Respiratory 19 Rate Blood Pressure 111/68 O2 Sat by Pulse 98 Oximetry (%) ASSESSMENT AND PLAN:AUD -Librium detox recommended , pt vehemently refused and requested Valium taper . Pt was educated about the risk of seizures. OUD on agonist therapy - prolonged QTc , pt was advised to d/w w/ MMTP
[2019-12-31] MEDS: diazePAM 5 MG TABLET PO PRN (18:46)
[2019-12-31] MEDS ORDERED: diazePAM 5 MG TABLET PO SCH (22:00)
[2019-12-31] MEDS: diazePAM 5 MG TABLET PO SCH (22:14)
[2019-12-31] MEDS: THIAMINE HCL 100 MG TABLET (FP) PO SCH (22:14)
[2019-12-31] MEDS: METHOCARBAMOL 500 MG TABLET PO PRN (22:14)
[2019-12-31] MEDS: MELATONIN 5 MG TABLETS PO SCH (22:15)
[2019-12-31] MEDS: NICOTINE POLACRILEX 2 MG GUM BUC PRN (22:17)
[2020-01-01] MEDS: diazePAM 5 MG TABLET PO PRN ×3 (00:56→18:16)
[2020-01-01] MEDS: NICOTINE POLACRILEX 2 MG GUM BUC PRN ×5 (03:56→20:37)
[2020-01-01] MEDS: diazePAM 5 MG TABLET PO SCH ×3 (05:45→21:21)
[2020-01-01] MEDS ORDERED: METHADONE 80 MG, METHADONE 20 MG PO ONE (08:30)
[2020-01-01] MEDS ORDERED: METHADONE HCL 10 MG TABLET PO ONE (08:30)
[2020-01-01] MEDS ORDERED: METHADONE HCL 10 MG TABLET ONE (09:02)
[2020-01-01] MEDS ORDERED: METHADONE HCL 40 MG DISPERSABLE TABLET ONE (09:03)
[2020-01-01] MEDS: PRENATAL VITAMINS W/ FOLIC ACID TABLET (FP) PO SCH (10:13)
[2020-01-01] MEDS: NICOTINE 7 MG/24 HOURS TOPICAL PATCH TD SCH (10:14)
[2020-01-01 10:19] LABS: HEMOGLOBIN 12.1 GM/dL (10.7-15.3); PLATELET COUNT 204 K/MM3 (134-434)
[2020-01-01 10:33] LABS: ALBUMIN 3.4 g/dl (3.4-5.0); BILIRUBIN,TOTAL 0.3 mg/dL (0.2-1); BLOOD UREA NITROGEN 10.1 mg/dL (7-18); CALCIUM 8.8 mg/dL (8.5-10.1); CREATININE 0.7 mg/dL (0.55-1.3); POTASSIUM 4.9 mmol/L (3.5-5.1)
[2020-01-01 10:49] LABS: HEMATOCRIT 37.7 % (32.4-45.2); MCH 30.7 pg (25.7-33.7); MCHC 32.1 g/dl (32.0-36.0); MEAN CELL VOLUME 95.6 fl (80-96); MEAN PLT VOLUME 9.5 fl (7.5-11.1); RBC 3.95 M/mm3 (3.60-5.2)
--- NOTE | 2020-01-01 10:50 | PN ---
S CIWA - CIWA Score Nausea/Vomitin-No Nausea/No Vomiting Muscle Tremors: 3 Anxiety: 2 Agitation: 2 Paroxysmal Sweats: 2 Orientation: 0-Oriented Tacttile Disturbances: 0-None Auditory Disturbances: 0-None Visual Disturbances: 0-None Headache: 0-None Present CIWA-Ar Total Score: 9 BHS Progress Note (SOAP) Subjective: sweats shakes restless irritable body aches Objective: 01/01/20 10:49 Vital Signs Temperature 98.2 F 01/01/20 09:05 Pulse Rate 92 H 01/01/20 09:05 Respiratory Rate 16 01/01/20 09:05 Blood Pressure 128/75 01/01/20 09:05 O2 Sat by Pulse Oximetry (%) 96 01/01/20 09:05 Laboratory Tests 12/31/19 01/01/20 16:08 08:10 Sodium 140 Potassium 4.9 Chloride 105 Carbon Dioxide 28 Anion Gap 7 L BUN 10.1 Creatinine 0.7 Est GFR (CKD-EPI)AfAm 118.74 Est GFR (CKD-EPI)NonAf 102.45 Random Glucose 86 Calcium 8.8 Total Bilirubin 0.3 AST 18 ALT 17 Alkaline Phosphatase 61 Total Protein 7.0 Albumin 3.4 POC Urine HCG, Qual Negative aaox3 lying in bed no acute distress Assessment: 01/01/20 10:50 withdrawals Plan: continue detox
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
--- NOTE | 2020-01-01 13:11 | EKG ---
Test Reason : Blood Pressure : / mmHG Vent. Rate : 074 BPM Atrial Rate : 074 BPM P-R Int : 192 ms QRS Dur : 078 ms QT Int : 426 ms P-R-T Axes : 063 075 064 degrees QTc Int : 472 ms NORMAL SINUS RHYTHM NORMAL ECG WHEN COMPARED WITH ECG OF 21-MAY-2017 16:08, ST NO LONGER DEPRESSED IN INFERIOR LEADS Confirmed by MD JV, LETICIA ([id number]) on 01/01/2020 1:11:21 PM Referred By: Confirmed By:LETICIA CARIAS MD
[2020-01-01] MEDS: PARoxetine HCL 10 MG TABLET PO SCH (15:58)
[2020-01-01] MEDS: ALBUTEROL SO4 HFA INHALER IH PRN (18:20)
[2020-01-01] MEDS: THIAMINE HCL 100 MG TABLET (FP) PO SCH (21:21)
[2020-01-01] MEDS: MELATONIN 5 MG TABLETS PO SCH (21:21)
[2020-01-01] MEDS: QUEtiapine FUMARATE 100 MG TABLET (FP) PO SCH (21:21)
[2020-01-02] MEDS: diazePAM 5 MG TABLET PO PRN ×4 (03:21→22:07)
[2020-01-02] MEDS: NICOTINE POLACRILEX 2 MG GUM BUC PRN ×6 (03:24→21:19)
[2020-01-02] MEDS ORDERED: chlordiazePOXIDE HCL 25 MG CAPSULE PO SCH (05:00)
[2020-01-02] MEDS ORDERED: METHADONE HCL 10 MG TABLET ONE (05:15)
[2020-01-02] MEDS ORDERED: METHADONE HCL 40 MG DISPERSABLE TABLET ONE (05:16)
[2020-01-02] MEDS ORDERED: METHADONE HCL 40 MG DISPERSABLE TABLET PO SCH (06:00)
[2020-01-02] MEDS ORDERED: diazePAM 5 MG TABLET PO SCH (06:00)
[2020-01-02] MEDS: diazePAM 5 MG TABLET PO SCH ×2 (06:04→17:02)
[2020-01-02] MEDS: METHADONE 80 MG, METHADONE 20 MG PO SCH (06:05)
--- NOTE | 2020-01-02 09:49 | PN ---
S CIWA - CIWA Score Nausea/Vomitin-No Nausea/No Vomiting Muscle Tremors: 1-None Visible, but [place] Anxiety: 1-Mildly Anxious Agitation: 1-Slight > Activity Paroxysmal Sweats: No Perspiration Orientation: 0-Oriented Tacttile Disturbances: 0-None Auditory Disturbances: 0-None Visual Disturbances: 0-None Headache: 0-None Present CIWA-Ar Total Score: 3 BHS Progress Note (SOAP) Subjective: sweats anxiety agitation restless Objective: 01/02/20 09:48 Vital Signs Temperature 98 F 01/02/20 09:41 Pulse Rate 80 01/02/20 09:41 Respiratory Rate 18 01/02/20 09:41 Blood Pressure 108/68 01/02/20 09:41 O2 Sat by Pulse Oximetry (%) 99 01/02/20 06:00 Laboratory Tests 12/31/19 12/31/19 01/01/20 16:08 17:43 08:10 WBC RBC Hgb Hct MCV MCH MCHC RDW Plt Count MPV Sodium Potassium Chloride Carbon Dioxide Anion Gap BUN Creatinine Est GFR (CKD-EPI)AfAm Est GFR (CKD-EPI)NonAf Random Glucose Calcium Total Bilirubin AST ALT Alkaline Phosphatase Total Protein Albumin POC Urine HCG, Qual Negative Syphilis Serology Non-reactive COVID-19 (CHRISTINA) Not detected HIV Ag/Ab Combo Qual 01/01/20 01/01/20 01/01/20 08:10 08:10 08:10 WBC 4.0 RBC 3.95 Hgb 12.1 Hct 37.7 MCV 95.6 MCH 30.7 MCHC 32.1 RDW 15.0 Plt Count 204 MPV 9.5 Sodium 140 Potassium 4.9 Chloride 105 Carbon Dioxide 28 Anion Gap 7 L BUN 10.1 Creatinine 0.7 Est GFR (CKD-EPI)AfAm 118.74 Est GFR (CKD-EPI)NonAf 102.45 Random Glucose 86 Calcium 8.8 Total Bilirubin 0.3 AST 18 ALT 17 Alkaline Phosphatase 61 Total Protein 7.0 Albumin 3.4 POC Urine HCG, Qual Syphilis Serology COVID-19 (CHRISTINA) HIV Ag/Ab Combo Qual Negative aaox3 ambulating no acute distress Assessment: 01/02/20 09:49 withdrawals Plan: continue detox d/c in am
[2020-01-02] MEDS: PRENATAL VITAMINS W/ FOLIC ACID TABLET (FP) PO SCH (10:17)
[2020-01-02] MEDS: PARoxetine HCL 10 MG TABLET PO SCH (10:17)
[2020-01-02] MEDS: NICOTINE 7 MG/24 HOURS TOPICAL PATCH TD SCH (10:17)
[2020-01-02] MEDS: QUEtiapine FUMARATE 100 MG TABLET (FP) PO SCH (22:07)
[2020-01-02] MEDS: THIAMINE HCL 100 MG TABLET (FP) PO SCH (22:07)
[2020-01-02] MEDS: MELATONIN 5 MG TABLETS PO SCH (22:09)
[2020-01-03] MEDS ORDERED: chlordiazePOXIDE HCL 10 MG CAPSULE PO PRN
[2020-01-03] MEDS ORDERED: chlordiazePOXIDE HCL 10 MG CAPSULE PO SCH (05:00)
[2020-01-03] MEDS ORDERED: METHADONE HCL 40 MG DISPERSABLE TABLET ONE (05:01)
[2020-01-03] MEDS ORDERED: METHADONE HCL 10 MG TABLET ONE (05:01)
[2020-01-03] MEDS: METHADONE 80 MG, METHADONE 20 MG PO SCH (05:47)
[2020-01-03] MEDS: NICOTINE POLACRILEX 2 MG GUM BUC PRN ×5 (05:48→20:16)
[2020-01-03] MEDS ORDERED: diazePAM 5 MG TABLET PO ONE ×2 (06:00→22:00)
[2020-01-03] MEDS: PARoxetine HCL 10 MG TABLET PO SCH (10:26)
[2020-01-03] MEDS: NICOTINE 7 MG/24 HOURS TOPICAL PATCH TD SCH (10:26)
[2020-01-03] MEDS: PRENATAL VITAMINS W/ FOLIC ACID TABLET (FP) PO SCH (10:27)
--- NOTE | 2020-01-03 10:36 | DS ---
[facility] Detox Discharge Summary Admission Date: 12/31/19 Discharge Date: 01/03/20 - History Present History: Alcohol Dependence, Sedative Dependence - Physical Exam Results Vital Signs: Vital Signs Temperature 97.3 F L 01/03/20 05:45 Pulse Rate 67 01/03/20 05:45 Respiratory Rate 20 01/03/20 05:45 Blood Pressure 109/71 01/03/20 05:45 O2 Sat by Pulse Oximetry (%) 98 01/03/20 05:45 Pertinent Admission Physical Exam Findings: Vital Signs Temperature 97.3 F L 01/03/20 05:45 Pulse Rate 67 01/03/20 05:45 Respiratory Rate 20 01/03/20 05:45 Blood Pressure 109/71 01/03/20 05:45 O2 Sat by Pulse Oximetry (%) 98 01/03/20 05:45 Laboratory Tests 12/31/19 12/31/19 01/01/20 16:08 17:43 08:10 WBC RBC Hgb Hct MCV MCH MCHC RDW Plt Count MPV Sodium Potassium Chloride Carbon Dioxide Anion Gap BUN Creatinine Est GFR (CKD-EPI)AfAm Est GFR (CKD-EPI)NonAf Random Glucose Calcium Total Bilirubin AST ALT Alkaline Phosphatase Total Protein Albumin POC Urine HCG, Qual Negative Syphilis Serology Non-reactive COVID-19 (CHRISTINA) Not detected HIV Ag/Ab Combo Qual 01/01/20 01/01/20 01/01/20 08:10 08:10 08:10 WBC 4.0 RBC 3.95 Hgb 12.1 Hct 37.7 MCV 95.6 MCH 30.7 MCHC 32.1 RDW 15.0 Plt Count 204 MPV 9.5 Sodium 140 Potassium 4.9 Chloride 105 Carbon Dioxide 28 Anion Gap 7 L BUN 10.1 Creatinine 0.7 Est GFR (CKD-EPI)AfAm 118.74 Est GFR (CKD-EPI)NonAf 102.45 Random Glucose 86 Calcium 8.8 Total Bilirubin 0.3 AST 18 ALT 17 Alkaline Phosphatase 61 Total Protein 7.0 Albumin 3.4 POC Urine HCG, Qual Syphilis Serology COVID-19 (CHRISTINA) HIV Ag/Ab Combo Qual Negative labs noted aaox3 ambulating continue detox lungs CTA - Treatment Hospital Course: Detox Protocol Followed, Detoxed Safely, Responded well, Discharged Condition Good, Rehab Referral Accepted - Medication Discharge Medications: Ambulatory Orders Quetiapine Fumarate [Seroquel -] 100 mg PO HS 06/07/19 Dextroamphetamine/Amphetamine [Adderall 10 mg Tablet] 20 mg PO BID 06/11/19 Albuterol Sulfate Inhaler - [Ventolin HFA Inhaler -] 2 puff IH Q6H PRN #1 inhaler 06/20/19 Paroxetine HCl [Paxil] 30 mg PO DAILY 12/31/19 - Diagnosis (1) Alcohol dependence with uncomplicated withdrawal Current Visit: Yes Status: Chronic (2) Nicotine dependence Current Visit: Yes Status: Chronic Qualifiers: Nicotine product type: cigarettes Substance use status: uncomplicated Qualified Code(s): F17.210 - Nicotine dependence, cigarettes, uncomplicated (3) Substance induced mood disorder Current Visit: Yes Status: Acute (4) Withdrawal seizures Current Visit: Yes Status: Acute (5) MDD (major depressive disorder), recurrent episode, moderate Current Visit: Yes Status: Chronic (6) Opioid dependence on agonist therapy Current Visit: Yes Status: Chronic (7) Substance-induced sleep disorder Current Visit: No Status: Acute (8) ADHD (attention deficit hyperactivity disorder) Current Visit: No Status: Chronic (9) Alcohol use disorder Current Visit: No Status: Chronic (10) Benzodiazepine dependence Current Visit: No Status: Chronic (11) Insomnia Current Visit: No Status: Chronic (12) Nicotine dependence Current Visit: No Status: Chronic Qualifiers: (13) Sedative, hypnotic or anxiolytic dependence with withdrawal, uncomplicated Current Visit: No Status: Chronic (14) Substance induced mood disorder Current Visit: No Status: Chronic (15) Asthma Current Visit: No Status: Resolved Qualifiers: - AMA Did Patient Leave Against Medical Advice: No
--- NOTE | 2020-01-03 11:41 | PN ---
[facility] Progress Note Note: pt appears very shaky, sweats, agitation, restless. pt was asked why she didn't take the librium taper as suggested on admission? pt states she refused because Valium helps her better. Pt was made aware that librium would have been a better choice for her withdrawals but she insisted on Valium. pt will benefit with two day taper of 5mg of Valium with prn also included in her taper. Pt was made aware of this change and is in agreement. pt will be discharged on Monday with a plan to go to rehab.
[2020-01-03] MEDS: diazePAM 5 MG TABLET PO PRN ×3 (12:20→20:15)
[2020-01-03] MEDS: THIAMINE HCL 100 MG TABLET (FP) PO SCH (21:53)
[2020-01-03] MEDS: MELATONIN 5 MG TABLETS PO SCH (21:53)
[2020-01-03] MEDS: QUEtiapine FUMARATE 100 MG TABLET (FP) PO SCH (21:53)
[2020-01-04] MEDS: diazePAM 5 MG TABLET PO PRN ×4 (03:56→23:18)
[2020-01-04] MEDS ORDERED: METHADONE HCL 10 MG TABLET ONE (04:20)
[2020-01-04] MEDS ORDERED: METHADONE HCL 40 MG DISPERSABLE TABLET ONE (04:21)
[2020-01-04] MEDS ORDERED: chlordiazePOXIDE HCL 10 MG CAPSULE PO SCH (05:00)
[2020-01-04] MEDS: METHADONE 80 MG, METHADONE 20 MG PO SCH (06:10)
[2020-01-04] MEDS: NICOTINE POLACRILEX 2 MG GUM BUC PRN ×4 (06:14→17:16)
[2020-01-04] MEDS: diazePAM 5 MG TABLET PO SCH ×2 (10:14→21:03)
[2020-01-04] MEDS: PARoxetine HCL 10 MG TABLET PO SCH (10:14)
[2020-01-04] MEDS: PRENATAL VITAMINS W/ FOLIC ACID TABLET (FP) PO SCH (10:14)
[2020-01-04] MEDS: NICOTINE 7 MG/24 HOURS TOPICAL PATCH TD SCH (10:14)
--- NOTE | 2020-01-04 16:17 | PN ---
S CIWA - CIWA Score Nausea/Vomitin-No Nausea/No Vomiting Muscle Tremors: 2 Anxiety: 3 Agitation: 2 Paroxysmal Sweats: No Perspiration Orientation: 0-Oriented Tacttile Disturbances: 0-None Auditory Disturbances: 0-None Visual Disturbances: 1-Very Mild Sensitivity Headache: 0-None Present CIWA-Ar Total Score: 8 BHS Progress Note (SOAP) Subjective: Sweating, Anxious, Tremors. Objective: Patient A & O X 3, Observed Ambulating on Detox Unit Unassisted. In No Acute Distress. 01/04/20 16:18 Vital Signs Temperature 98.8 F 01/04/20 14:46 Pulse Rate 71 01/04/20 14:46 Respiratory Rate 16 01/04/20 14:46 Blood Pressure 97/54 L 01/04/20 14:46 O2 Sat by Pulse Oximetry (%) 97 01/04/20 14:46 Laboratory Tests 12/31/19 12/31/19 01/01/20 16:08 17:43 08:10 WBC RBC Hgb Hct MCV MCH MCHC RDW Plt Count MPV Sodium Potassium Chloride Carbon Dioxide Anion Gap BUN Creatinine Est GFR (CKD-EPI)AfAm Est GFR (CKD-EPI)NonAf Random Glucose Calcium Total Bilirubin AST ALT Alkaline Phosphatase Total Protein Albumin POC Urine HCG, Qual Negative Syphilis Serology Non-reactive COVID-19 (CHRISTINA) Not detected HIV Ag/Ab Combo Qual 01/01/20 01/01/20 01/01/20 08:10 08:10 08:10 WBC 4.0 RBC 3.95 Hgb 12.1 Hct 37.7 MCV 95.6 MCH 30.7 MCHC 32.1 RDW 15.0 Plt Count 204 MPV 9.5 Sodium 140 Potassium 4.9 Chloride 105 Carbon Dioxide 28 Anion Gap 7 L BUN 10.1 Creatinine 0.7 Est GFR (CKD-EPI)AfAm 118.74 Est GFR (CKD-EPI)NonAf 102.45 Random Glucose 86 Calcium 8.8 Total Bilirubin 0.3 AST 18 ALT 17 Alkaline Phosphatase 61 Total Protein 7.0 Albumin 3.4 POC Urine HCG, Qual Syphilis Serology COVID-19 (CHRISTINA) HIV Ag/Ab Combo Qual Negative Lab Results noted. Assessment: 01/04/20 16:18 WITHDRAWAL SYMPTOMS. Plan: Continue Detox. Increase Daily Oral Water Intake.
[2020-01-04] MEDS: MELATONIN 5 MG TABLETS PO SCH (21:03)
[2020-01-04] MEDS: THIAMINE HCL 100 MG TABLET (FP) PO SCH (21:03)
[2020-01-04] MEDS: QUEtiapine FUMARATE 100 MG TABLET (FP) PO SCH (21:03)
[2020-01-05] MEDS ORDERED: METHADONE HCL 10 MG TABLET ONE (04:23)
[2020-01-05] MEDS ORDERED: METHADONE HCL 40 MG DISPERSABLE TABLET ONE (04:24)
[2020-01-05] MEDS ORDERED: chlordiazePOXIDE HCL 10 MG CAPSULE PO ONE (05:00)
[2020-01-05] MEDS: METHADONE 80 MG, METHADONE 20 MG PO SCH (06:01)
[2020-01-05] MEDS: diazePAM 5 MG TABLET PO PRN ×3 (06:06→20:23)
[2020-01-05] MEDS ORDERED: diazePAM 5 MG TABLET PO ONE (10:00)
[2020-01-05] MEDS: NICOTINE 7 MG/24 HOURS TOPICAL PATCH TD SCH (10:22)
[2020-01-05] MEDS: PRENATAL VITAMINS W/ FOLIC ACID TABLET (FP) PO SCH (10:22)
[2020-01-05] MEDS: PARoxetine HCL 10 MG TABLET PO SCH (10:22)
[2020-01-05] MEDS: ALBUTEROL SO4 HFA INHALER IH PRN (10:23)
[2020-01-05] MEDS: METHOCARBAMOL 500 MG TABLET PO PRN (10:23)
[2020-01-05] MEDS: NICOTINE POLACRILEX 2 MG GUM BUC PRN ×4 (10:25→19:59)
--- NOTE | 2020-01-05 12:47 | PN ---
Psychiatric Progress Note Vital Signs: Vital Signs Period Temp Pulse Resp BP Sys/Perkins Pulse Ox Last 24 Hr 96.8 F-98.8 F 71-82 16-18 97-126/53-75 97-97 Date of Session: 01/05/20 Chief Complaint:: " Can i get a refill of my medications." HPI: Patient admitted to for treatment of alcohol and opioid dependence. Consultation ordered due to request for a refill of psychotropic medications. ROS: Patient is alert +oriented X3. Current Medications: Active Medications Generic Name Dose Route Start Last Admin Trade Name Freq PRN Reason Stop Dose Admin Acetaminophen 650 mg 12/31/19 16:10 Tylenol - PO Q6H PRN PAIN LEVEL 4 - 6 Acetaminophen 650 mg 12/31/19 16:10 Tylenol - PO Q6H PRN FEVER Al Hydroxide/Mg Hydroxide 30 ml 12/31/19 16:10 Mylanta Oral Suspension - PO Q6H PRN DYSPEPSIA Albuterol Sulfate 2 puff 12/31/19 18:37 01/05/20 10:23 Ventolin Hfa Inhaler - IH 2 puff Q6H PRN Administration ASTHMA Bismuth Subsalicylate 524 mg 12/31/19 16:10 Pepto-Bismol - PO Q1H PRN DIARRHEA Diazepam 5 mg 01/03/20 16:53 01/05/20 06:06 Valium - PO 01/06/20 16:52 5 mg Q4H PRN Administration WITHDRAWAL(CONT SUBST) Diazepam 5 mg 01/06/20 06:00 Valium - PO 01/06/20 06:01 ONCE ONE Eucalyptus/Menthol/Phenol/Sorbitol 1 each 12/31/19 16:10 Cepastat Lozenge - MM 01/06/20 16:10 Q4H PRN SORE THROAT Ibuprofen 400 mg 12/31/19 16:10 Motrin - PO Q6H PRN PAIN LEVEL 1 - 3 Magnesium Citrate 300 ml 12/31/19 16:10 Citroma - PO Q48H PRN CONSTIPATION Magnesium Hydroxide 30 ml 12/31/19 16:10 Milk Of Magnesia - PO PRN PRN CONSTIPATION Melatonin 5 mg 12/31/19 22:00 01/04/20 21:03 Melatonin PO 5 mg HS IAIN Administration Methadone HCl 80 mg/ Methadone 100 mg 01/02/20 06:00 08/16/20 06:01 HCl 20 mg PO 01/08/20 05:59 100 mg DAILY@0600 IAIN Administration Methocarbamol 500 mg 12/31/19 16:10 01/05/20 10:23 Robaxin - PO 01/06/20 16:10 500 mg Q6H PRN Administration MUSCLE SPASMS Nicotine 7 mg 01/01/20 10:00 01/05/20 10:22 Nicoderm Patch - TD 7 mg DAILY IAIN Administration Nicotine Polacrilex 2 mg 12/31/19 16:10 01/05/20 10:25 Nicorette Gum - BUC 2 mg Q2H PRN Administration NICOTINE REPLACEMENT RX Paroxetine HCl 30 mg 01/01/20 12:00 01/05/20 10:22 Paxil - PO 30 mg DAILY IAIN Administration Multivit/Folic Acid/Iron 1 tab 01/01/20 10:00 01/05/20 10:22 Vitamins (Sjr) - PO 1 tab DAILY IAIN Administration Quetiapine Fumarate 100 mg 01/01/20 22:00 01/04/20 21:03 Seroquel - PO 100 mg HS IAIN Administration Thiamine HCl 100 mg 12/31/19 22:00 01/04/20 21:03 Vitamin B1 - PO 100 mg HS IAIN Administration Medication(s) Change(s): No. Current Side Effect: No Lab tests ordered: No Lab tests reviewed: Yes Provider note:: Ms. Moore is requesting a five day prescription of Paxil 30mg + Seroquel 100mg HS. 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 Patient is reassured that a five day prescription will be electronically sent to the pharmacy on file ( pharmacy, [address] [place] [address]). Patient satisifed and receptive to feedback. Total face to face time:: 15 Mental Status Exam - Mental Status Exam Alert and Oriented to: Time, Place, Person Cognitive Function: Good Patient Appearance: Well Groomed Mood: Withdrawn Affect: Mood Congruent Patient Behavior: Fatigued, Cooperative Speech Pattern: Appropriate Voice Loudness: Normal Thought Process: Goal Oriented Thought Disorder: Not Present Hallucinations: Denies Suicidal Ideation: Denies Homicidal Ideation: Denies Insight/Judgement: Poor Sleep: Fair Appetite: Fair Muscle strength/Tone: Normal Gait/Station: Other (Gait not observed.) Psychiatric Treatment Plan - Problem List (1) Alcohol dependence with uncomplicated withdrawal Current Visit: Yes (2) Nicotine dependence Current Visit: Yes Qualifiers: Nicotine product type: cigarettes Substance use status: uncomplicated Qualified Code(s): F17.210 - Nicotine dependence, cigarettes, uncomplicated (3) Opioid dependence on agonist therapy Current Visit: Yes (4) ADHD (attention deficit hyperactivity disorder) Current Visit: No Comment: As per self-report. Sees a psychiatrist, Dr Page Thurman, in the community. (5) MDD (major depressive disorder), recurrent episode, moderate Current Visit: Yes (6) Substance induced mood disorder Current Visit: Yes (7) Substance-induced sleep disorder Current Visit: Yes
--- NOTE | 2020-01-05 18:06 | PN ---
S CIWA - CIWA Score Nausea/Vomitin-No Nausea/No Vomiting Muscle Tremors: None Anxiety: 2 Agitation: 2 Paroxysmal Sweats: No Perspiration Orientation: 0-Oriented Tacttile Disturbances: 0-None Auditory Disturbances: 0-None Visual Disturbances: 0-None Headache: 0-None Present CIWA-Ar Total Score: 4 S Progress Note (SOAP) Subjective: Feels ok, c/o red rash on left arm and wants cream for the rash. Pt said she's for discharge tomorrow. Pt requests to see Psychiatrist for discharge med tomorrow. Objective: 01/05/20 18:03 Last Vital Signs Temp Pulse Resp BP Pulse Ox 97.5 F L 86 20 103/64 97 01/05/20 12:58 01/05/20 12:58 01/05/20 12:58 01/05/20 12:58 01/05/20 12:58 Laboratory Tests 12/31/19 12/31/19 01/01/20 16:08 17:43 08:10 WBC RBC Hgb Hct MCV MCH MCHC RDW Plt Count MPV Sodium Potassium Chloride Carbon Dioxide Anion Gap BUN Creatinine Est GFR (CKD-EPI)AfAm Est GFR (CKD-EPI)NonAf Random Glucose Calcium Total Bilirubin AST ALT Alkaline Phosphatase Total Protein Albumin POC Urine HCG, Qual Negative Syphilis Serology Non-reactive COVID-19 (CHRISTINA) Not detected HIV Ag/Ab Combo Qual 01/01/20 01/01/20 01/01/20 08:10 08:10 08:10 WBC 4.0 RBC 3.95 Hgb 12.1 Hct 37.7 MCV 95.6 MCH 30.7 MCHC 32.1 RDW 15.0 Plt Count 204 MPV 9.5 Sodium 140 Potassium 4.9 Chloride 105 Carbon Dioxide 28 Anion Gap 7 L BUN 10.1 Creatinine 0.7 Est GFR (CKD-EPI)AfAm 118.74 Est GFR (CKD-EPI)NonAf 102.45 Random Glucose 86 Calcium 8.8 Total Bilirubin 0.3 AST 18 ALT 17 Alkaline Phosphatase 61 Total Protein 7.0 Albumin 3.4 POC Urine HCG, Qual Syphilis Serology COVID-19 (CHRISTINA) HIV Ag/Ab Combo Qual Negative Labs reviewed Assessment: 01/05/20 18:04 Withdrawal sxs Plan: Continue detox Encourage PO water intake Patient scheduled for discharge tomorrow Hydrocortisone cream 0.5% bid x 7 days to rash on left arm
[2020-01-05] MEDS: HYDROCORTISONE 0.5% TOPICAL CREAM 30 GM TUBE TP SCH (22:21)
[2020-01-05] MEDS: QUEtiapine FUMARATE 100 MG TABLET (FP) PO SCH (22:22)
[2020-01-05] MEDS: MELATONIN 5 MG TABLETS PO SCH (22:22)
[2020-01-05] MEDS: THIAMINE HCL 100 MG TABLET (FP) PO SCH (22:22)
[2020-01-06] MEDS: diazePAM 5 MG TABLET PO PRN (02:51)
[2020-01-06] MEDS: NICOTINE POLACRILEX 2 MG GUM BUC PRN (02:52)
[2020-01-06] MEDS ORDERED: METHADONE HCL 10 MG TABLET ONE (03:40)
[2020-01-06] MEDS ORDERED: METHADONE HCL 40 MG DISPERSABLE TABLET ONE (03:40)
[2020-01-06] MEDS: METHADONE 80 MG, METHADONE 20 MG PO SCH (05:32)
[2020-01-06 05:58] VITALS: BP 105/66; PULSE 67; TEMP 97.3
[2020-01-06] MEDS ORDERED: diazePAM 5 MG TABLET PO ONE ×2 (06:00)
--- NOTE | 2020-01-06 09:11 | DS ---
[facility] Detox Discharge Summary Admission Date: 12/31/19 Discharge Date: 01/06/20 - History Present History: Alcohol Dependence, Sedative Dependence, MMTP - Physical Exam Results Vital Signs: Vital Signs Temperature 97.3 F L 01/06/20 05:22 Pulse Rate 67 01/06/20 05:22 Respiratory Rate 16 01/06/20 05:22 Blood Pressure 105/66 01/06/20 05:22 O2 Sat by Pulse Oximetry (%) 96 01/06/20 05:22 Pertinent Admission Physical Exam Findings: Vital Signs Temperature 97.3 F L 01/06/20 05:22 Pulse Rate 67 01/06/20 05:22 Respiratory Rate 16 01/06/20 05:22 Blood Pressure 105/66 01/06/20 05:22 O2 Sat by Pulse Oximetry (%) 96 01/06/20 05:22 Laboratory Tests 12/31/19 12/31/19 01/01/20 16:08 17:43 08:10 WBC RBC Hgb Hct MCV MCH MCHC RDW Plt Count MPV Sodium Potassium Chloride Carbon Dioxide Anion Gap BUN Creatinine Est GFR (CKD-EPI)AfAm Est GFR (CKD-EPI)NonAf Random Glucose Calcium Total Bilirubin AST ALT Alkaline Phosphatase Total Protein Albumin POC Urine HCG, Qual Negative Syphilis Serology Non-reactive COVID-19 (CHRISTINA) Not detected HIV Ag/Ab Combo Qual 01/01/20 01/01/20 01/01/20 08:10 08:10 08:10 WBC 4.0 RBC 3.95 Hgb 12.1 Hct 37.7 MCV 95.6 MCH 30.7 MCHC 32.1 RDW 15.0 Plt Count 204 MPV 9.5 Sodium 140 Potassium 4.9 Chloride 105 Carbon Dioxide 28 Anion Gap 7 L BUN 10.1 Creatinine 0.7 Est GFR (CKD-EPI)AfAm 118.74 Est GFR (CKD-EPI)NonAf 102.45 Random Glucose 86 Calcium 8.8 Total Bilirubin 0.3 AST 18 ALT 17 Alkaline Phosphatase 61 Total Protein 7.0 Albumin 3.4 POC Urine HCG, Qual Syphilis Serology COVID-19 (CHRISTINA) HIV Ag/Ab Combo Qual Negative labs noted aaox3 ambulating no acute distress - Treatment Hospital Course: Detox Protocol Followed, Detoxed Safely, Responded well, Discharged Condition Good, Rehab Referral Accepted Patient has Accepted a Rehab Referral to: pt refused inpatient rehab. referral provided. - Medication Discharge Medications: Ambulatory Orders Quetiapine Fumarate [Seroquel -] 100 mg PO HS 06/07/19 Albuterol Sulfate Inhaler - [Ventolin HFA Inhaler -] 2 puff IH Q6H PRN #1 inhaler 06/20/19 Paroxetine HCl [Paxil] 30 mg PO DAILY 12/31/19 Quetiapine Fumarate [Seroquel -] 100 mg PO HS #5 tablet 01/05/20 - Diagnosis (1) Alcohol dependence with uncomplicated withdrawal Current Visit: Yes Status: Chronic (2) Nicotine dependence Current Visit: Yes Status: Chronic Qualifiers: Nicotine product type: cigarettes Substance use status: uncomplicated Qualified Code(s): F17.210 - Nicotine dependence, cigarettes, uncomplicated (3) Substance induced mood disorder Current Visit: Yes Status: Acute (4) Withdrawal seizures Current Visit: No Status: Suspected (5) MDD (major depressive disorder), recurrent episode, moderate Current Visit: Yes Status: Chronic (6) Substance-induced sleep disorder Current Visit: Yes Status: Acute (7) ADHD (attention deficit hyperactivity disorder) Current Visit: No Status: Chronic (8) Insomnia Current Visit: No Status: Chronic (9) Sedative, hypnotic or anxiolytic dependence with withdrawal, uncomplicated Current Visit: Yes Status: Chronic (10) Substance induced mood disorder Current Visit: Yes Status: Chronic (11) Asthma Current Visit: Yes Status: Chronic Qualifiers: Asthma persistence: unspecified Asthma complication type: unspecified - AMA Did Patient Leave Against Medical Advice: No
[2020-01-06] MEDS: PRENATAL VITAMINS W/ FOLIC ACID TABLET (FP) PO SCH (10:23)
[2020-01-06] MEDS: HYDROCORTISONE 0.5% TOPICAL CREAM 30 GM TUBE TP SCH (10:23)
[2020-01-06] MEDS: NICOTINE 7 MG/24 HOURS TOPICAL PATCH TD SCH (10:23)
[2020-01-06] MEDS: PARoxetine HCL 10 MG TABLET PO SCH (10:23)
== END 2020-01-06 10:35 | disposition home or self-care (01) | DRG 897 ==
LOC: YASAS 12:38 → Y6N 16:33
PROVIDERS: ADMIT Allergy & Immunology; ATTEND Allergy & Immunology
PROC: HZ2ZZZZ Detoxification Services for Substance Abuse Treatment (ICD-10-PCS; principal; 2019-12-31)
DX: F10.230 Alcohol dependence with withdrawal, uncomplicated (principal); F11.20 Opioid dependence, uncomplicated; F19.282 Other psychoactive substance dependence with psychoactive substance-induced sleep disorder; F33.1 Major depressive disorder, recurrent, moderate; G40.509 Epileptic seizures related to external causes, not intractable, without status epilepticus; F13.230 Sedative, hypnotic or anxiolytic dependence with withdrawal, uncomplicated; F17.210 Nicotine dependence, cigarettes, uncomplicated; F19.24 Other psychoactive substance dependence with psychoactive substance-induced mood disorder; F90.9 Attention-deficit hyperactivity disorder, unspecified type; D64.9 Anemia, unspecified; G47.00 Insomnia, unspecified; R21 Rash and other nonspecific skin eruption; Z91.410 Personal history of adult physical and sexual abuse; Z87.09 Personal history of other diseases of the respiratory system
CPT/HCPCS: 36415; 80053; 81025; 85027; 86780; 87389; 93005; 93010; U0003

== ENCOUNTER 2021-12-02 10:37 | Inpatient (IN) | payer OTHER ==
[2021-12-02] MEDS ORDERED: methaDONE HCL 10 MG TABLET (FOR DETOX USE ONLY) PO ONE (14:22)
[2021-12-02] MEDS ORDERED: NICOTINE 10 MG CARTRIDGE (INHALER) IH PRN (14:23)
[2021-12-02] MEDS ORDERED: MAG HYDROX/AL HYDROX/SIMETH 30 ML UNIT-DOSE CUP PO PRN (14:23)
[2021-12-02] MEDS ORDERED: DICYCLOMINE HCL 10 MG CAPSULE PO PRN (14:23)
[2021-12-02] MEDS ORDERED: LOPERAMIDE HCL 2 MG CAPSULE PO PRN (14:23)
[2021-12-02] MEDS ORDERED: MAGNESIUM HYDROX 2400MG/30ML ORAL SUSPENSION 30 ML CUP PO PRN (14:23)
[2021-12-02] MEDS ORDERED: BENZOCAINE/MENTHOL (CHLORASEPTIC ) LOZENGE MM PRN (14:23)
[2021-12-02] MEDS ORDERED: IBUPROFEN 600 MG TABLET (FP) PO PRN (14:23)
[2021-12-02] MEDS ORDERED: BISMUTH SUBSALICYLATE 524 MG/30 ML PO PRN (14:23)
[2021-12-02] MEDS ORDERED: MAGNESIUM CITRATE 300 ML BOTTLE PO PRN (14:23)
[2021-12-02] MEDS ORDERED: IBUPROFEN 400 MG TABLET (FP) PO PRN (14:23)
[2021-12-02] MEDS ORDERED: ACETAMINOPHEN 325 MG TABLET (FP) PO PRN ×2 (14:23)
[2021-12-02] MEDS ORDERED: ONDANSETRON *ODT* 4 MG TABLET SL PRN (14:23)
[2021-12-02] MEDS: diazePAM 5 MG TABLET PO PRN (14:55)
[2021-12-02] MEDS ORDERED: methaDONE HCL 10 MG TABLET PO ONE (15:42)
[2021-12-02] MEDS ORDERED: methaDONE 80 MG, methaDONE 20 MG PO ONE (15:45)
[2021-12-02] MEDS ORDERED: methaDONE HCL 10 MG TABLET ONE (15:48)
[2021-12-02] MEDS ORDERED: methaDONE HCL 40 MG DISPERSABLE TABLET ONE (15:48)
[2021-12-02] MEDS: diazePAM 5 MG TABLET PO SCH ×2 (17:10→22:43)
[2021-12-02] MEDS: hydrOXYzine PAMOATE 25 MG CAPSULE (FP) PO SCH ×2 (17:10→22:43)
[2021-12-02] MEDS: METHOCARBAMOL 500 MG TABLET PO PRN (17:11)
[2021-12-02] MEDS: THIAMINE HCL 100 MG TABLET (FP) PO SCH (22:43)
[2021-12-02] MEDS: MELATONIN 5 MG TABLETS PO SCH (22:43)
[2021-12-03] MEDS: diazePAM 5 MG TABLET PO PRN ×4 (00:58→20:03)
[2021-12-03] MEDS: diazePAM 5 MG TABLET PO SCH ×4 (05:09→22:30)
[2021-12-03] MEDS: hydrOXYzine PAMOATE 25 MG CAPSULE (FP) PO SCH ×5 (05:10→22:30)
[2021-12-03] MEDS: METHOCARBAMOL 500 MG TABLET PO PRN ×2 (05:10→17:47)
[2021-12-03] MEDS ORDERED: methaDONE HCL 10 MG TABLET PO ONE (07:35)
[2021-12-03] MEDS ORDERED: methaDONE HCL 10 MG TABLET ONE (07:57)
[2021-12-03] MEDS ORDERED: methaDONE HCL 40 MG DISPERSABLE TABLET ONE (07:57)
[2021-12-03] MEDS ORDERED: methaDONE 80 MG, methaDONE 20 MG PO ONE (08:15)
[2021-12-03] MEDS: PARoxetine HCL 10 MG TABLET PO SCH (11:05)
[2021-12-03] MEDS: PRENATAL VITAMINS W/ FOLIC ACID TABLET (FP) PO SCH (11:05)
[2021-12-03] MEDS: NICOTINE POLACRILEX 2 MG GUM BUC PRN ×2 (14:18→21:05)
[2021-12-03] MEDS: THIAMINE HCL 100 MG TABLET (FP) PO SCH (22:30)
[2021-12-03] MEDS: MELATONIN 5 MG TABLETS PO SCH (22:30)
[2021-12-04] MEDS: NICOTINE POLACRILEX 2 MG GUM BUC PRN ×5 (02:33→22:17)
[2021-12-04] MEDS: diazePAM 5 MG TABLET PO PRN ×3 (02:33→18:35)
[2021-12-04] MEDS: diazePAM 5 MG TABLET PO SCH ×3 (05:21→22:16)
[2021-12-04] MEDS: hydrOXYzine PAMOATE 25 MG CAPSULE (FP) PO SCH ×5 (05:21→22:16)
[2021-12-04] MEDS ORDERED: methaDONE HCL 40 MG DISPERSABLE TABLET PO ONE (06:00)
[2021-12-04] MEDS: PRENATAL VITAMINS W/ FOLIC ACID TABLET (FP) PO SCH (10:27)
[2021-12-04] MEDS: PARoxetine HCL 10 MG TABLET PO SCH (10:28)
[2021-12-04] MEDS: METHOCARBAMOL 500 MG TABLET PO PRN (10:28)
[2021-12-04] MEDS: THIAMINE HCL 100 MG TABLET (FP) PO SCH (22:16)
[2021-12-04] MEDS: SUVOREXANT 10 MG TABLET PO PRN (22:16)
[2021-12-05] MEDS: diazePAM 5 MG TABLET PO PRN ×3 (00:56→13:36)
[2021-12-05] MEDS: NICOTINE POLACRILEX 2 MG GUM BUC PRN ×5 (02:27→18:32)
[2021-12-05] MEDS ORDERED: methaDONE HCL 10 MG TABLET ONE (04:40)
[2021-12-05] MEDS ORDERED: methaDONE HCL 40 MG DISPERSABLE TABLET ONE (04:40)
[2021-12-05] MEDS: diazePAM 5 MG TABLET PO SCH ×2 (05:12→17:25)
[2021-12-05] MEDS: hydrOXYzine PAMOATE 25 MG CAPSULE (FP) PO SCH ×5 (05:12→22:16)
[2021-12-05] MEDS ORDERED: methaDONE HCL 10 MG TABLET PO SCH (06:00)
[2021-12-05] MEDS: PRENATAL VITAMINS W/ FOLIC ACID TABLET (FP) PO SCH (10:29)
[2021-12-05] MEDS: PARoxetine HCL 10 MG TABLET PO SCH (10:29)
[2021-12-05] MEDS: METHOCARBAMOL 500 MG TABLET PO PRN ×2 (10:29→22:17)
[2021-12-05] MEDS: THIAMINE HCL 100 MG TABLET (FP) PO SCH (22:16)
[2021-12-05] MEDS: SUVOREXANT 10 MG TABLET PO PRN (22:16)
[2021-12-06] MEDS ORDERED: methaDONE HCL 10 MG TABLET ONE (04:35)
[2021-12-06] MEDS ORDERED: methaDONE HCL 40 MG DISPERSABLE TABLET ONE (04:36)
[2021-12-06] MEDS: hydrOXYzine PAMOATE 25 MG CAPSULE (FP) PO SCH ×5 (05:12→21:53)
[2021-12-06] MEDS: METHOCARBAMOL 500 MG TABLET PO PRN ×2 (05:12→17:36)
[2021-12-06] MEDS: NICOTINE POLACRILEX 2 MG GUM BUC PRN ×3 (05:13→20:01)
[2021-12-06] MEDS ORDERED: diazePAM 5 MG TABLET PO ONE (06:00)
[2021-12-06] MEDS: PARoxetine HCL 10 MG TABLET PO SCH (10:20)
[2021-12-06] MEDS: PRENATAL VITAMINS W/ FOLIC ACID TABLET (FP) PO SCH (10:20)
[2021-12-06] MEDS ORDERED: ALBUTEROL SO4 HFA INHALER IH PRN (10:25)
[2021-12-06] MEDS: SUVOREXANT 10 MG TABLET PO PRN (21:51)
[2021-12-06] MEDS: THIAMINE HCL 100 MG TABLET (FP) PO SCH (21:52)
[2021-12-07] MEDS: METHOCARBAMOL 500 MG TABLET PO PRN (01:10)
[2021-12-07] MEDS: NICOTINE POLACRILEX 2 MG GUM BUC PRN ×3 (01:11→09:26)
[2021-12-07] MEDS ORDERED: methaDONE HCL 10 MG TABLET ONE (05:03)
[2021-12-07] MEDS ORDERED: methaDONE HCL 40 MG DISPERSABLE TABLET ONE (05:03)
[2021-12-07] MEDS: hydrOXYzine PAMOATE 25 MG CAPSULE (FP) PO SCH ×2 (05:37→10:10)
[2021-12-07] MEDS ORDERED: diazePAM 5 MG TABLET PO ONE (06:00)
[2021-12-07 09:21] VITALS: BP 118/70; PULSE 65; TEMP 96.8
[2021-12-07] MEDS: PARoxetine HCL 10 MG TABLET PO SCH (10:10)
[2021-12-07] MEDS: PRENATAL VITAMINS W/ FOLIC ACID TABLET (FP) PO SCH (10:10)
== END 2021-12-07 10:15 | disposition home or self-care (01) | DRG 897 ==
LOC: YASAS 10:37 → Y6N 14:58
PROVIDERS: ADMIT Allergy & Immunology; ATTEND Surgery
PROC: HZ2ZZZZ Detoxification Services for Substance Abuse Treatment (ICD-10-PCS; principal; 2021-12-02)
DX: F13.230 Sedative, hypnotic or anxiolytic dependence with withdrawal, uncomplicated (principal); F11.20 Opioid dependence, uncomplicated; F19.282 Other psychoactive substance dependence with psychoactive substance-induced sleep disorder; F19.280 Other psychoactive substance dependence with psychoactive substance-induced anxiety disorder; F33.1 Major depressive disorder, recurrent, moderate; F10.230 Alcohol dependence with withdrawal, uncomplicated; F19.24 Other psychoactive substance dependence with psychoactive substance-induced mood disorder; F90.8 Attention-deficit hyperactivity disorder, other type; F32.A Depression, unspecified; J45.909 Unspecified asthma, uncomplicated; K21.9 Gastro-esophageal reflux disease without esophagitis; Z86.2 Personal history of diseases of the blood and blood-forming organs and certain disorders involving the immune mechanism; Z86.69 Personal history of other diseases of the nervous system and sense organs; Z87.891 Personal history of nicotine dependence
CPT/HCPCS: 81025; C9803-CS; U0003; U0005